=== PATIENT | female | born 1935 | race Caucasian/White ===

== ENCOUNTER → 2017-01-10 | Outpatient (CLI) | payer OTHER ==
[~2017-01-10] MED LIST: ACET-1138 PO; ASPEC325 PO; ASPI-435 PO; ASPI81TA28 PO; CHOL100010 PO; FLNIN/; HYDR25TA5 PO; INSU3INJ3 SC; INSUINJ12 SC; LISI-725 PO; LISI40TA PO; LPR25 PO; SIMV80TA2 PO; SITA100T3 PO; ULT50X PO; b12 injection
[2017-01-10 12:26] LABS: ALT/SGPT 16 U/L (12-78); AST/SGOT 15 U/L (15-37); BLOOD UREA NITROGEN 22 mg/dl (7-18); CALCIUM 9.3 mg/dl (8.5-10.1); CARBON DIOXIDE 28 mmol/L (21-32); CHLORIDE 103 mmol/L (98-107); CHOLESTEROL 157 mg/dl (0-200); GLUCOSE 142 mg/dl (70-99); POTASSIUM 3.9 mmol/L (3.5-5.1); SODIUM 140 mmol/L (136-145); TRIGLYCERIDES 351 mg/dl (0-150); VERY LOW DENSITY LIPOPROT CALC 70 mg/dl
[2017-01-10 12:28] LABS: ALB/GLOB RATIO 1.2 (0.9-2); ALKALINE PHOSPHATASE 80 U/L (45-117); CHOLESTEROL/HDL RATIO 3.4; HDL CHOLESTEROL 46 mg/dl; LDL CHOLESTEROL CALCULATED 41 mg/dl
[2017-01-10 12:59] LABS: ESTIMATED AVERAGE GLUCOSE 183 mg/dl; HA1C FLAG Normal (Normal)
== END | disposition home or self-care (01) ==
LOC: C.LABPVFM 08:56
PROVIDERS: ATTEND Family Medicine
DX: E11.29 Type 2 diabetes mellitus with other diabetic kidney complication (principal); I10 Essential (primary) hypertension; E53.8 Deficiency of other specified B group vitamins; E78.5 Hyperlipidemia, unspecified; E55.9 Vitamin D deficiency, unspecified; G47.9 Sleep disorder, unspecified

== ENCOUNTER → 2017-01-15 | Outpatient (CLI) | payer OTHER ==
[2017-01-15 13:03] LABS: RATIO 36.5 mcg/mg (0-30.0)
== END | disposition home or self-care (01) ==
LOC: C.LABPVFM 15:26
PROVIDERS: ATTEND Family Medicine
DX: E11.29 Type 2 diabetes mellitus with other diabetic kidney complication (principal)

== ENCOUNTER → 2017-02-02 | Outpatient (CLI) | payer OTHER ==
[~2017-02-02] MED LIST changes: +ACET-24 PO; +CHOL2000 PO; +CYAN30003 SQ; +FRRG PO; +TRAZ100T29 PO
== END | disposition home or self-care (01) ==
LOC: C.LABPVFM 14:43
PROVIDERS: ATTEND Neuromusculoskeletal Medicine & OMM
DX: R30.0 Dysuria (principal)

== ENCOUNTER 2017-03-19 06:06 | Inpatient (IN) | payer OTHER ==
[2017-03-05 08:55] VITALS: BMI 36.0
--- NOTE | 2017-03-05 09:29 | PAT Medication Instructions ---
Service Date March 05, 2017. Current Home Medication List Aspirin (Aspirin *), 325 MG PO QAM Cholecalciferol (Vitamin D), 1 TAB PO QPM Hydrochlorothiazide (Hydrochlorothiazide), 25 MG PO QAM Insulin Detmir (Levemir), 45 UNIT SC QPM Lisinopril (Zestril), 20 MG PO QAM Metoprolol Tartrate (Lopressor), 37.5 MG PO BID Simvastatin (Zocor), 80 MG PO QPM Sitagliptin Phosphate (Januvia), 50 MG PO QAM [b12 injection ], Unknown Dose QMONTH Medication Instructions For Your Scheduled Surgery [b12 injection ], Unknown Dose QMONTH (continue as directed) - Hold the following medications the morning of surgery: Sitagliptin Phosphate (Januvia), 50 MG PO QAM Lisinopril (Zestril), 20 MG PO QAM Hydrochlorothiazide (Hydrochlorothiazide), 25 MG PO QAM - Take the following medications the morning of surgery with a sip of water: Metoprolol Tartrate (Lopressor), 37.5 MG PO BID Aspirin (Aspirin *), 81 MG PO QAM (okay to take per surgeon) - Take the following medications as scheduled the night before surgery: Simvastatin (Zocor), 80 MG PO QPM Metoprolol Tartrate (Lopressor), 37.5 MG PO BID Insulin Detmir (Levemir), 45 UNIT SC QPM Cholecalciferol (Vitamin D), 1 TAB PO QPM If you have any questions please call us at [phone] or [phone] or [phone]
[2017-03-05 10:47] LABS: URINE APPEARANCE CLEAR (CLEAR); URINE BILIRUBIN NEG (NEG); URINE COLOR DK YELLOW; URINE EPITHELIAL CELL AUTO >30 /lpf (0-5); URINE NITRITE NEG (NEG); URINE SPECIFIC GRAVITY 1.024 (1.000-1.030); UROBILINOGEN NEG (NEG); ZZUR CULT IF INDIC CLEAN CATCH YES
[2017-03-05 10:48] LABS: BASO % 0.5 %; BASO ABS # 0.03 K/uL (0-0.2); COMPLETE YES; EOS % 3.3 %; HEMATOCRIT 37.8 % (37-47); IG% 0.2 %; LYMPH % 25.8 %; LYMPH ABS # 1.66 K/uL (1.2-3.4); MEAN CELL VOLUME 97.9 fL (80-100); MEAN CORPUSCULAR HEMOGLOBIN 31.9 pg (25-34); MEAN CORPUSCULAR HGB CONC 32.5 g/dl (32-36); NEUT % 63.2 %; PLATELET COUNT 159 K/uL (130-400); RED BLOOD COUNT 3.86 M/uL (4.2-5.4); WHITE BLOOD COUNT 6.43 K/uL (4.8-10.8)
[2017-03-05 10:51] LABS: MANUAL MICROSCOPIC REQUIRED? NO; REVIEW REQ? YES
[2017-03-05 10:53] LABS: PROTHROMBIN TIME (PATIENT) 10.6 SECONDS (9.0-12.0)
[2017-03-05 11:09] LABS: ESTIMATED AVERAGE GLUCOSE 183 mg/dl; HA1C FLAG Normal (Normal)
[2017-03-05 11:47] LABS: BUN/CREATININE RATIO 18.7 (10-20); CREATININE 1.4 mg/dl (0.60-1.20); POTASSIUM 4.6 mmol/L (3.5-5.1)
[2017-03-05 11:48] LABS: CALCIUM 9.7 mg/dl (8.5-10.1)
--- NOTE | 2017-03-16 19:32 | HISTORY & PHYSICAL EXAMINATION ---
DATE OF ADMISSION: 03/19/2017 CHIEF COMPLAINT: Bilateral knee pain, right side greater than left. HISTORY OF PRESENT ILLNESS: The patient is an 81-year-old female who presents for surgical treatment of her knees. She has got a long history of bilateral knee pain and discomfort, right side greater than left. She has initially been treated with some steroid shots which has become less successful over time. She had viscosupplementation which did not help at all. Both knees hurt. The right side is a bit worse than the left. She does want to proceed with knee replacement surgery. She wants to try and maintain independent lifestyle and having more difficulty doing this. Her knees hurt when she walks any prolonged distance. PAST MEDICAL HISTORY: 1. Diabetes x8 years. 2. Hypertension. 3. Elevated cholesterol. 4. Obesity with a BMI of 36.6. PAST SURGICAL HISTORY: 1. Bladder surgery. 2. Back surgery. 3. Knee surgery. ALLERGIES: Septra CURRENT MEDICATIONS: 1. Lisinopril 40 mg a day. 2. Zocor 80 mg a day. 3. Aspirin 81 mg a day. 4. Hydrochlorothiazide 25 mg a day. 5. Januvia 50 mg a day. 6. Metoprolol 25 mg twice a day. 7. Levemir 40 units once a day. SOCIAL HISTORY: An 81-year-old female patient from [place]. She gets her medical care at [facility]. She is . She does not smoke. FAMILY HISTORY: Noncontributory. REVIEW OF SYSTEMS: Significant for diabetes for 8 years. Hemoglobin A1c is 8.0 and she has tried to get together with her medical doctor improve this. Denies any current chest pain or shortness of breath. No history of DVT or PE. PHYSICAL EXAMINATION: GENERAL: Reveals a pleasant elderly female. She looks to be in reasonably good health. HEENT: Benign. NECK: Supple. No lymphadenopathy. LUNGS: Clear to auscultation. HEART: Has a regular rate and rhythm. ABDOMEN: Soft, nontender, nondistended. EXTREMITIES: Grossly neurovascularly intact except as follows: Examination of both knees reveals patient ambulates with little bit of a waddling gait. She has varus alignment to both knees. Range of motion of the right knee is from 5-120. She got tender medial joint line and small knee effusion. Examination of the left knee reveals minimal effusion. She is tender over the medial joint line. Range of motion is 5-120. No instability. X-RAYS: X-rays of both knees reveal advanced bilateral knee DJD. She has got complete loss of her medial joint space on both sides. She has got subchondral sclerosis. ASSESSMENT: An 81-year-old female with advanced bilateral knee pain and degenerative joint disease. She has failed conservative treatment. The right knee hurts more than the left and she would like to proceed with knee replacement surgery. PLAN: We will take her to the operating room and do a right total knee replacement. The risks and benefits of right total knee replacement were explained to patient including but not limited to DVT, PE, , infection, neurological injury, vascular injury, bleeding problem, pain, limited range of motion, stiffness, failure to relieve symptoms, incomplete relief of symptoms, need for further surgery in the future, fracture, leg length inequality, nerve palsy, etc. The patient understands and desires to proceed. Informed consent was obtained. We did talk to her about holding lisinopril the morning of surgery and taking her metoprolol. She has been trying to get her blood glucoses under better control. As far as discharge plans, she is planning to be discharged to home using [facility] home health program.
[2017-03-19] VITALS (9 sets, daily range): BP systolic 91–150; BP diastolic 54–78; PULSE 55–125; TEMP 36.4–36.8; O2SAT 93–99; Ht 165.1 cm; Wt 99.9 kg
[~2017-03-19] VITALS: Ht 165.1 cm; Wt 99.9 kg
[~2017-03-19 06:06] MED LIST changes: -ACET-1138 PO; -ACET-24 PO; +ACETAMINOPHEN 500 MG TAB PO SCH; -ASPEC325 PO; -ASPI81TA28 PO; +BUPIVACAINE LIPOSOME 266 MG, BUPIVACAINE/EPINEPHRINE INJ 50 ML, SODIUM CHLORIDE 0.9% PF... INFIL SCH; +CEFAZOLIN 2000 MG/60 ML D5W 60 ML IV SCH; -CHOL2000 PO; -CYAN30003 SQ; +FAMOTIDINE 20 MG TAB PO SCH; -FLNIN/; -FRRG PO; +GABAPENTIN 300 MG CAP PO SCH; -INSU3INJ3 SC; +LACTATED RINGER'S 1000ML 1,000 ML IV SCH; +LACTATED RINGER'S 1000ML IV SCH; -LISI40TA PO; +METOCLOPRAMIDE HCL 10 MG TAB PO SCH; +SCOPOLAMINE 1.5 MG TDSY TD SCH; -TRAZ100T29 PO; -ULT50X PO
[2017-03-19] MEDS ORDERED: TRANEXAMIC ACID INJ 1,000 MG in SODIUM CHLORIDE 0.9% 100ML 100 ML IV SCH ×2 (06:30→16:00)
[2017-03-19] MEDS ORDERED: BUPIVACAINE 0.5 % 5 MG/1 ML PF 10ML VIAL ONE (06:35)
[2017-03-19] MEDS ORDERED: BUPIVACAINE 0.25% 30 ML VIAL ONE (06:35)
--- NOTE | 2017-03-19 06:52 | History & Physical Bridge Note ---
H&P Re-Evaluation Bridge Note: I have examined the patient, reviewed the History & Physical and in the interval since the performance of the History & Physical I have noted the following changes of clinical significance: No changes noted
[2017-03-19] MEDS ORDERED: DEXAMETHASONE SOD INJ 4 MG/ML VIAL ONE (07:38)
[2017-03-19] MEDS ORDERED: LIDOCAINE HCL 2% 2 ML VIAL (20MG/ML) ONE (07:38)
[2017-03-19] MEDS ORDERED: ONDANSETRON INJ 2 MG/ML 2 ML VIAL ONE (07:38)
[2017-03-19] MEDS ORDERED: FENTANYL CITRATE INJ 50 MCG/1 ML 2 ML VIAL ONE (07:38)
[2017-03-19] MEDS ORDERED: PROPOFOL IV EMULSION 10 MG/ML 20 ML VIAL IV ONE (07:38)
[2017-03-19] MEDS ORDERED: MIDAZOLAM HCL 1 MG/ML 2ML VIAL ONE (07:38)
[2017-03-19] MEDS ORDERED: HYDROmorphone INJ 1 MG/ML SYR IV PRN ×2 (08:15→10:45)
[2017-03-19] MEDS ORDERED: ONDANSETRON INJ 2 MG/ML 2 ML VIAL IV PRN ×2 (08:15→10:45)
[2017-03-19] MEDS ORDERED: EpHEDrine SULFATE INJ 50 MG/ML AMP IV PRN (08:15)
[2017-03-19] MEDS ORDERED: MEPERIDINE HCL 25 MG/ML CARP IV PRN (08:15)
[2017-03-19] MEDS ORDERED: FENTANYL CITRATE INJ 50 MCG/1 ML 2 ML VIAL IV PRN (08:15)
[2017-03-19] MEDS ORDERED: LABETALOL HCL IV 5 MG/ML 20ML IV PRN (08:15)
[2017-03-19] MEDS ORDERED: ATROPINE SULFATE 0.1 MG/ML 5ML SYR IV PRN (08:15)
[2017-03-19] MEDS ORDERED: BUPIVACAINE/EPINEPHRINE 0.25% 1:200,000 30 ML VIAL ONE (08:41)
[2017-03-19] MEDS ORDERED: BUPIVACAINE LIPOSOME 1/3% 266 MG/20 ML VIAL INFIL ONE (08:41)
[2017-03-19] MEDS ORDERED: SODIUM CHLORIDE 0.9% PF 50 ML VIAL ONE (08:41)
[2017-03-19] MEDS ORDERED: BACITRACIN 50000 UNIT VIAL ONE (08:41)
--- NOTE | 2017-03-19 10:37 | [facility] Post Operative Brief Note ---
Immediate Operative Summary Operative Date March 19, 2017. Pre-Operative Diagnosis Right Knee Degenerative Joint Disease Post-Operative Diagnosis Same as preop Procedure(s) Performed Right Total Knee Arthroplasty Surgeon Dr. Aleman Appointment Coordinator Surgeon(s) James Forde PA-C Estimated Blood Loss 50 ML Findings Right Knee DJD Fluids (cc crystalloids) 1000 cc Specimens A. Right Knee Bone and Tissue Drains None Anesthesia Spinal Complication(s) None Disposition Recovery Room / PACU
[2017-03-19] MEDS ORDERED: DEXTROSE 50% 50 ML SYR IV PRN (10:45)
[2017-03-19] MEDS ORDERED: ZOLPIDEM TARTRATE 5 MG TAB PO PRN (10:45)
[2017-03-19] MEDS ORDERED: MAGNESIUM HYDROXIDE SUSP 30 ML UDC PO PRN (10:45)
[2017-03-19] MEDS ORDERED: GLUCOSE 10 TABS/TUBE PO PRN (10:45)
[2017-03-19] MEDS ORDERED: GLUCAGON FOR INJ 1 MG VIAL SQ PRN (10:45)
[2017-03-19] MEDS ORDERED: GLUCOSE 40% GEL 15 GM TUBE PO PRN (10:45)
[2017-03-19] MEDS ORDERED: ALUMINUM/MAGNESIUM/SIMETH (MAALOX MAX) 30 ML UDC PO PRN (10:45)
[2017-03-19] MEDS ORDERED: BISACODYL 10 MG SUPP PR PRN (10:45)
[2017-03-19] MEDS ORDERED: METOCLOPRAMIDE HCL INJ 5 MG/ML 2 ML VIAL IV PRN (10:45)
[2017-03-19] MEDS ORDERED: NO NSAIDS SCH (10:45)
--- NOTE | 2017-03-19 11:10 | DIAGNOSTIC IMAGING REPORT ---
RIGHT KNEE 1 OR 2 VIEWS ROUTINE CLINICAL HISTORY: Degenerative arthritis COMPARISON: Outside radiograph dated 01/31/2017 DISCUSSION: There are postsurgical changes of a total right knee arthroplasty and patellar resurfacing. The femoral and tibial components appear well seated. Overlying skin henna are evident. There is air in the soft tissues consistent with recent surgery. IMPRESSION: Postsurgical changes of a total right knee arthroplasty. Electronically signed by: Latrell Mcclellan M.D. 03/19/2017 11:09 AM Dictated Date/Time: 03/19/2017 11:08 AM
--- NOTE | 2017-03-19 11:26 | OPERATIVE REPORT ---
DATE OF OPERATION: 03/19/2017 SURGEON: Dr. Domenico Aleman. CIRCULATION CREW LEADER: RICO Song PREOPERATIVE DIAGNOSIS: Right knee degenerative joint disease. POSTOPERATIVE DIAGNOSIS: Same. PROCEDURE PERFORMED: Right cemented posterior stabilized total knee arthroplasty. COMPLICATIONS: None. ESTIMATED BLOOD LOSS: 50 mL. FLUID REPLACEMENT: 1000 mL crystalloid fluid replacement. TOURNIQUET TIME: 53 minutes at 300 mmHg. ANESTHESIA: Spinal with adductor canal block. DRAINS: None. SPECIMENS: Right knee sent for pathology. OPERATIVE INDICATIONS: The patient is an 81-year-old female who has had a long history of bilateral knee pain and discomfort. She had been treated conservatively with steroid shots as well as medicines and has become less successful over time. Right knee is bothered more than the left, despite the left side being worse radiographically. She elected to proceed with right total knee arthroplasty. OPERATIVE FINDINGS: Operative findings revealed advanced right knee DJD. She had grade 4 [id number] disease of the medial femoral condyle and medial tibial plateau. Really not much eburnation, but full thickness cartilage loss. She had grade 4 changes in the patellofemoral joint. The lateral compartment was pretty well preserved. She had a moderate sized joint effusion. OPERATIVE IMPLANTS: Operative implants consisted of: 1. Biomet Vanguard size 65 right posterior stabilized femoral component. 2. Biomet size 67 tibial tray. 3. A 10-mm posterior stabilized polyethylene insert. 4. A 31 x 8 all poly patella. OPERATIVE PROCEDURE: The patient was taken to the operating room, identified and placed on the operating table in the supine position. All contact areas were appropriately padded. IV antibiotics were provided by anesthesia team. A spinal anesthetic and adductor canal block had been provided in the holding area. Walters catheter was placed in sterile fashion. Right thigh tourniquet was then placed. The right lower extremity was then prepped and draped in the usual sterile fashion. The right leg was elevated and exsanguinated with Esmarch and tourniquet was placed at 300 mmHg. An anterior approach to the right knee was then performed through a longitudinal incision centered over the patella. Sharp dissection was carried out through the subcutaneous tissues down to the level of the extensor mechanism. A medial parapatellar arthrotomy incision was made. Some subperiosteal dissection was carried out medially. The fat pad was resected from beneath the patellar tendon. The lateral patellofemoral ligament was released. The patella was then everted. I elected to cut the patella first. I cleaned the patella of all soft tissues. Patella thickness measured 20 mm in thickness and it was cut down to 13. It was sized to a 31 patella. Lateral osteophyte was removed. I did not prepare the patella until the end of the case. The knee was then flexed. The patella was subluxated laterally. The osteophytes were taken off the distal femur. The ACL and PCL were then released from the distal femur and the tibia subluxated anteriorly. The external tibial alignment jig was then placed in the anterior face of the tibia and adjusted 14 mm medially. Proximal tibial cut was made to remove about 3 mm of bone from the most deficient aspect of the medial tibial plateau. Tibia was then sized to a size 67. Some osteophytes were taken off medial and posteromedially. Attention was then drawn to the femur. The distal femur was entered with a sharp drill. Intramedullary canal was suctioned. A right 5 degree valgus cutting guide was placed. Distal femoral cutting block was pinned in place. Distal femoral cut was made to take an additional 3 mm of bone off the distal femur. The femur was then sized to a 65. This was downsized this slightly. The AP cutting block was pinned parallel to the epicondylar axis, which was 3 degrees of external rotation. The anterior cut, anterior chamfer, posterior cut, and posterior chamfer cuts were made. Box cutting guide was placed and adjusted slightly lateral and the box cut was made. The knee was flexed. The remnants of the medial and lateral menisci were excised. The osteophytes were taken off the posterior aspect of the femur. Trial femoral component was placed. Tibial tray was pinned in maximum external rotation and the drill and stem punch were used to create defect in proximal tibia for the tibial tray. The knee was then trialed and the 10-mm insert fit most appropriately. Attention was then drawn to the patella. I then used the 31-mm template to drill holes in the patella for the patella component. The patella was placed. Knee was taken through range of motion and the patella tracked nicely with no thumbs test. Attention was then drawn toward placement of permanent components. All trial components were removed. A bone plug was placed in the distal femur to limit blood loss. The wound was irrigated with copious amounts of pulsatile lavage solution. A double batch of Palacos G cement was mixed. A right size 65 posterior stabilized femoral component, size 67 tibial tray, a 10-mm posterior stabilized polyethylene insert, and a 31 x 8 all poly patella were then cemented in place. Knee was brought out into full extension until cement hardened. A final cement check was then performed. Pericapsular tissues were injected with a total of 100 mL of a combination of 20 mL of Exparel, 30 mL of normal saline, and 50 mL of 0.25% Marcaine with epinephrine. The patient did receive 1 gram of tranexamic acid. The tourniquet was then let down for final tourniquet time of 53 minutes. Hemostasis was assured with use of electrocautery. The wound was once again irrigated. The extensor mechanism was then closed with a combination of #1 PDS suture and #1 Vicryl suture in a [id number] fashion. Extensor mechanism was checked and found to be intact. The subcutaneous tissues were then closed with 2-0 Dexon suture in a buried interrupted fashion. Skin was closed skin henna. Leg was then cleaned and dried and a sterile dressing of Xeroform, 4 x 4, sterile cast padding and Sergei bandage were applied. The patient was then transferred to the recovery room in stable condition. The patient tolerated the procedure well with no complications. All needle and sponge counts were correct at the end of the operation. I attest to the content of the Intraoperative Record and any orders documented therein. Any exceptio ns are noted below.
--- NOTE | 2017-03-19 12:13 | Anesthesiology Progress Note ---
Anesthesia Post Op Note Date & Time March 19, 2017 at 12:14 Vital Signs Pain Intensity: 0 Vital Signs Past 12 Hours Date Time Temp Pulse Resp B/P Pulse Ox O2 Delivery O2 Flow Rate FiO2 03/19/17 11:30 36.4 56 16 103/46 99 Nasal Cannula 2 03/19/17 11:20 57 16 90/37 100 Nasal Cannula 2 03/19/17 11:10 55 16 94/45 98 Nasal Cannula 2 03/19/17 11:00 60 16 97/44 98 Nasal Cannula 2 03/19/17 10:50 61 16 98/39 100 Mask 10 03/19/17 10:40 36.4 64 16 90/45 98 Mask 10 03/19/17 06:49 36.5 125 20 150/78 93 Room Air Notes Mental Status: alert / awake / arousable, participated in evaluation Pt Amnestic to Procedure: Yes Nausea / Vomiting: adequately controlled Pain: adequately controlled Airway Patency, RR, SpO2: stable & adequate BP & HR: stable & adequate Hydration State: stable & adequate Neuraxial Anesthesia: was administered, sensory block is resolving Anesthetic Complications: no major complications apparent
[2017-03-19] MEDS: SODIUM CHLORIDE 0.9% 1000ML 1,000 ML IV SCH ×2 (13:37→19:58)
[2017-03-19] MEDS: FERROUS GLUCONATE 324 MG TAB PO SCH ×2 (13:37→17:56)
[2017-03-19] MEDS: ACETAMINOPHEN 500 MG TAB PO SCH ×2 (13:38→21:18)
--- NOTE | 2017-03-19 16:03 | PROGRESS NOTE ---
DATE: 03/19/2017 SUBJECTIVE: An 81-year-old female postop from a right knee replacement. I had to wake her when I went into her room this afternoon. She denies any pain. No chest pain or shortness of breath. Not feeling dizzy or lightheaded. OBJECTIVE: VITAL SIGNS: Temperature 36.6. Vital signs stable. GENERAL: Physical examination reveals a healthy pleasant elderly female. She was lying in bed and sleeping when I went to visit her this afternoon. She woke easily. She is awake, alert and oriented. LUNGS: Clear to auscultation. HEART: Has a regular rate and rhythm. ABDOMEN: Soft, nontender, and nondistended. EXTREMITIES: Grossly neurovascularly intact except as follows: Examination of the right leg reveals the leg to be well aligned. Dressing is clean, dry and intact. She can dorsiflex and plantarflex her foot appropriately. She is neurologically intact. X-RAYS: X-rays of the right knee from the recovery room were reviewed. It shows a right cemented posterior stabilized total knee arthroplasty. Components looked to be in good position. No signs of problems. ASSESSMENT: An 81-year-old female postop from a right knee replacement, doing well. Pain is controlled. She is neurologically intact. PLAN: 1. DVT prophylaxis including thigh-high TEDs, SCDs, and aspirin twice a day. 2. PT/OT. Weightbearing as tolerated. Right total knee protocol. 3. Pain control, doing well with current pain regimen. We are going to try and really limit her narcotics to avoid confusion issues and side effects. 4. IV antibiotics x24 hours. 5. Disposition: Plan to discharge to home with some home health once adequately recovered.
[2017-03-19] MEDS: CHECK SCOPOLAMINE PATCH PLACEMENT SCH ×2 (16:24→23:14)
[2017-03-19] MEDS: INSULIN HUMAN REGULAR SC SCH ×2 (18:01→21:29)
[2017-03-19] MEDS: CEFAZOLIN IV 2,000 MG in DEXTROSE 5% 50ML 50 ML IV SCH (18:02)
[2017-03-19] MEDS: TRAMADOL HCL 50 MG TAB PO PRN ×2 (19:58→21:16)
[2017-03-19] MEDS: METOPROLOL TARTRATE 25 MG TAB PO SCH (21:00)
[2017-03-19] MEDS: SIMVASTATIN 80 MG TAB PO SCH (21:16)
[2017-03-19] MEDS: DOCUSATE SODIUM 100 MG CAP PO SCH (21:17)
[2017-03-19] MEDS: ASPIRIN 325 MG ECTAB PO SCH (21:17)
[2017-03-19] MEDS: CHOLECALCIFEROL 400 INTER.UNIT TAB PO SCH (21:17)
[2017-03-20] MEDS: CEFAZOLIN IV 2,000 MG in DEXTROSE 5% 50ML 50 ML IV SCH (01:57)
[2017-03-20] MEDS: TRAMADOL HCL 50 MG TAB PO PRN ×4 (01:58→15:51)
[2017-03-20 03:55] VITALS: BP 154/64; PULSE 73; TEMP 36.9; O2SAT 91
[2017-03-20] MEDS: ACETAMINOPHEN 500 MG TAB PO SCH ×3 (05:02→21:57)
[2017-03-20] MEDS: SODIUM CHLORIDE 0.9% 1000ML 1,000 ML IV SCH (05:03)
[2017-03-20 06:21] LABS: HEMATOCRIT 33.6 % (37-47); MEAN CORPUSCULAR HEMOGLOBIN 31.4 pg (25-34); MEAN CORPUSCULAR HGB CONC 32.7 g/dl (32-36); MEAN PLATELET VOLUME 10.4 fL (7.4-10.4); PLATELET COUNT 145 K/uL (130-400); WHITE BLOOD COUNT 8.11 K/uL (4.8-10.8)
[2017-03-20 06:55] LABS: BUN/CREATININE RATIO 18.1 (10-20); CALCIUM 8.2 mg/dl (8.5-10.1); CREATININE 1.4 mg/dl (0.60-1.20); POTASSIUM 4.6 mmol/L (3.5-5.1)
[2017-03-20 07:31] VITALS: BP 128/70; PULSE 65; TEMP 36.9; O2SAT 90
[2017-03-20] MEDS: CHECK SCOPOLAMINE PATCH PLACEMENT SCH ×3 (07:36→23:12)
[2017-03-20 07:47] VITALS: O2SAT 90
[2017-03-20] MEDS ORDERED: ACET-1138 PO (08:38)
[2017-03-20] MEDS ORDERED: ULT50X PO (08:38)
[2017-03-20] MEDS ORDERED: ASPEC325 PO (08:38)
--- NOTE | 2017-03-20 08:40 | Discharge Instructions ---
Discharge Instructions Date of Service March 20, 2017. Admission Reason for Admission: Right Knee Degenerative Joint Disease Discharge Discharge Diagnosis / Problem: Right Knee Replacement Discharge Goals Goal(s): Decrease discomfort, Improve function, Increase independence, Improve disease control, Therapeutic intervention Activity Recommendations Activity Limitations: per Instructions/Follow-up section Weightbearing Status: Right weightbearing . Instructions / Follow-Up Instructions / Follow-Up ACTIVITY RECOMMENDATIONS: Physical Therapy: * You will go to physical therapy three times each week for four to six weeks after your surgery in order to regain your knee range of motion and to retrain your knee to work properly. * It is just as important to make sure you are getting your knee perfectly straight as it is to regain your knee bend. * Taking a pain pill an hour before therapy can help you have a more productive and comfortable therapy session. Home Exercise: * You were shown a series of exercises (heel props, heel slides, etc.) in the hospital. Do these exercises three to four times each day including the exercises you were shown in physical therapy. Walking: * Get up and walk several times each day. For the first four weeks, try not to stand or walk for more than one hour at a time. If you do stand or walk for more than one hour, you will not hurt anything, but your knee and leg will likely swell. * As you feel comfortable, you may change from the walker or crutches to a cane and then to independent walking. MEDICATIONS: New Medicine: * You will likely be taking one or more of these medications: 1. Tramadol - A quick and shorter-acting pain medication. Take one to two tablets every six hours to lessen your pain. 2. Aspirin - Thins your blood to lessen the chance of forming a blood clot. * The most common side effects of pain medicine and iron are nausea and constipation. If nausea or constipation is too much of a problem or if you have any questions about your new medicines or doses, call [facility] at . We will try to help you manage these issues. VERY IMPORTANT TO READ AND REVIEW" Pain: * The immediate post-operative period after knee replacement surgery is often quite painful. * You are given a prescription for pain medicine. You should take it, as directed, when you need it, especially before physical therapy and before going to bed. Pain that interferes with sleep is very common and can last several months. * You will likely need pain medicine for the first four to six weeks. It will not stop all of the pain. The pain will lessen and as you feel better, you may change to milder pain medicine such as Tylenol. * The most common side effects of pain medicine are nausea and constipation, so don't take more than you need. SPECIAL CARE INSTRUCTIONS: TEDs/Elastic Stockings: * The white elastic stockings help limit swelling and prevent blood clots from forming in your legs. The more you wear them, the more they work. * Wear them for six weeks after knee replacement surgery and four weeks after partial knee replacement. Prevention of Infection: * Take antibiotics one hour before any dental cleaning, dental work, urological procedure, gastrointestinal procedure or any invasive surgery in order to prevent your new joint from getting infected. * You may get the antibiotics from the doctor performing the procedure or you may call our office at before and we will call in a prescription to the pharmacy of your choice. Things to Watch For: * Drainage from the incision site that occurs more than one week after your surgery. * Severely increased knee/leg pain or swelling. * Increased redness at the incision site. * Fever above 102 degrees Fahrenheit. * Unusual chest pain or shortness of breath. * Unusual pain or burning with urination. Call [facility] at with any of the above problems or if you have any questions about your medicines or recovery. FOLLOW UP VISIT: Make an appointment to see your doctor for approximately two weeks after surgery for a progress check and staple removal by calling the office at . Current Hospital Diet Patient's current hospital diet: Diabetes Type 2 Diet Discharge Diet Recommended Diet: Diabetes Type 2 Diet Procedures Procedures Performed: Right Total Knee Arthroplasty Pending Studies Studies pending at discharge: no Laboratory Results Hemoglobin A1c Test 03/05/17 09:37 Range/Units Estimated Average Glucose 183 mg/dl Hemoglobin A1c 8.0 H 4.5-5.6 % Lipid Panel Test 01/10/17 09:00 Range/Units Triglycerides Level 351 H 0-150 mg/dl Cholesterol Level 157 0-200 mg/dl HDL Cholesterol 46 mg/dl Cholesterol/HDL Ratio 3.4 LDL Cholesterol, Calculated 41 mg/dl Medical Emergencies . Who to Call and When: Medical Emergencies: If at any time you feel your situation is an emergency, please call 911 immediately. . Non-Emergent Contact Non-Emergency issues call your: Surgeon . "Provider Documentation" section prepared by Domenico Aleman. . VTE Core Measure Inpt VTE Proph given/why not?: Other Anticoagulation, T.E.DAlex Zee, SCD's
[2017-03-20] MEDS: HYDROCHLOROTHIAZIDE 25 MG TAB PO SCH (08:46)
[2017-03-20] MEDS: ASPIRIN 325 MG ECTAB PO SCH ×2 (08:46→21:56)
[2017-03-20] MEDS: METOPROLOL TARTRATE 25 MG TAB PO SCH ×2 (08:47→21:56)
[2017-03-20] MEDS: LISINOPRIL 20 MG TAB PO SCH (08:47)
[2017-03-20] MEDS: MULTIVITAMIN TAB PO SCH (08:47)
[2017-03-20] MEDS: PANTOprazole SOD 40 MG TAB PO SCH (08:47)
[2017-03-20] MEDS: FERROUS GLUCONATE 324 MG TAB PO SCH ×3 (08:48→17:50)
[2017-03-20] MEDS: DOCUSATE SODIUM 100 MG CAP PO SCH ×2 (08:48→21:58)
[2017-03-20] MEDS: SITAGLIPTIN 25 MG TAB PO SCH (08:48)
[2017-03-20] MEDS: INSULIN HUMAN REGULAR SC SCH ×4 (08:49→22:01)
--- NOTE | 2017-03-20 08:57 | PROGRESS NOTE ---
DATE: 03/20/2017 SUBJECTIVE: An 81-year-old white female postop day #1 from right knee replacement. She is doing pretty well. She is up and exercised this morning and having a bit more knee pain now. No chest pain or shortness of breath. Not feeling dizzy or lightheaded. OBJECTIVE: VITAL SIGNS: Temperature 36.9. Vital signs stable. PHYSICAL EXAMINATION: GENERAL: Reveals a pleasant elderly female. She is sitting up in bed. She is awake, alert and oriented. EXTREMITIES: Examination of the right leg reveals the leg to be well aligned. The patient can dorsiflex and plantarflex her foot appropriately. She is neurologically intact. Dressing is clean, dry and intact. LABORATORY DATA: Hemoglobin is 11.0. Hematocrit 33.6. Electrolytes are stable. Mild chronic renal insufficiency with a creatinine of 1.40. ASSESSMENT: An 81-year-old white female postop day 1 from a right knee replacement, doing pretty well. Some pain which is to be expected. Not out of the ordinary. She is neurologically intact. Renal function is stable. PLAN: 1. DVT prophylaxis include thigh-high TEDs, SCDs, and aspirin twice a day. 2. PT/OT. Weight bear as tolerated. Right total knee protocol. 3. Pain control, doing reasonably well with current pain regimen. We are going to have to be careful to avoid too heavy doses of pain medication to avoid confusion. 4. Disposition: She is planning to be discharged home with some home health once adequately recovered.
[2017-03-20 11:58] VITALS: BP 132/72; PULSE 64; TEMP 36.6; O2SAT 94
[2017-03-20 15:32] VITALS: BP 127/61; PULSE 66; TEMP 37.1; O2SAT 95
[2017-03-20] MEDS: SIMVASTATIN 80 MG TAB PO SCH (21:55)
[2017-03-20] MEDS: CHOLECALCIFEROL 400 INTER.UNIT TAB PO SCH (21:56)
[2017-03-20 23:11] VITALS: BP 127/71; PULSE 61; TEMP 36.6; O2SAT 90
[2017-03-21] MEDS: TRAMADOL HCL 50 MG TAB PO PRN ×2 (05:22→10:21)
[2017-03-21] MEDS: ACETAMINOPHEN 500 MG TAB PO SCH (05:22)
[2017-03-21 06:15] VITALS: BP 151/76; PULSE 64; TEMP 36.7; O2SAT 92
[2017-03-21] MEDS: FERROUS GLUCONATE 324 MG TAB PO SCH ×2 (07:22→12:29)
[2017-03-21] MEDS: LISINOPRIL 20 MG TAB PO SCH (07:23)
[2017-03-21] MEDS: DOCUSATE SODIUM 100 MG CAP PO SCH (07:23)
[2017-03-21] MEDS: ASPIRIN 325 MG ECTAB PO SCH (07:23)
[2017-03-21] MEDS: PANTOprazole SOD 40 MG TAB PO SCH (07:23)
[2017-03-21] MEDS: HYDROCHLOROTHIAZIDE 25 MG TAB PO SCH (07:23)
[2017-03-21] MEDS: METOPROLOL TARTRATE 25 MG TAB PO SCH (07:23)
[2017-03-21] MEDS: MULTIVITAMIN TAB PO SCH (07:24)
[2017-03-21] MEDS: SITAGLIPTIN 25 MG TAB PO SCH (07:24)
[2017-03-21] MEDS: INSULIN HUMAN REGULAR SC SCH ×2 (07:27→12:00)
--- NOTE | 2017-03-21 07:40 | PROGRESS NOTE ---
DATE: 03/21/2017 SUBJECTIVE: 81-year-old female postop day 2 from right placement. She is doing okay. Quite a bit of knee pain with therapy. No other complaints. No chest pain or shortness of breath. Not feeling dizzy or lightheaded. OBJECTIVE: VITAL SIGNS: Temperature 36.7. Vital signs stable. PHYSICAL EXAMINATION: GENERAL: Pleasant elderly female. She is lying in bed this morning and looks reasonably comfortable. EXTREMITIES: Examination of the right leg reveals the leg to be well aligned. Dressing is clean, dry and intact. Calf is soft and supple. Not much swelling. She is neurologically intact. ASSESSMENT: 81-year-old white female postop day 2 from right knee replacement, doing pretty well. Pain is reasonably well controlled. We have to be careful with pain medicines to avoid confusion and side effects. PLAN: 1. DVT prophylaxis including thigh-high TEDS, SCDs, and aspirin twice a day. 2. PT/OT. Weightbearing as tolerated. Right total knee protocol. 3. Pain control. Doing reasonably well with current pain regimen. I am a little hesitant to give her too much more for fear of confusion and side effects. 4. Disposition: Plan to discharge to home with some home health if she does okay in therapy today.
[2017-03-21 07:44] VITALS: BP 126/72; PULSE 65; TEMP 36.8; O2SAT 92
[2017-03-21 07:50] VITALS: O2SAT 92
[2017-03-21 08:19] VITALS: BP 136/69; PULSE 63; O2SAT 91
[2017-03-21 12:08] VITALS: BP 136/69; PULSE 63; TEMP 36.8; O2SAT 91
--- NOTE | 2017-03-29 14:11 | DISCHARGE SUMMARY ---
ADMITTING PHYSICIAN AND SURGEON: Dr. Aleman. ADMITTING DIAGNOSIS: Right knee degenerative joint disease. SURGERY PERFORMED: Right total knee arthroplasty. SECONDARY DIAGNOSES: Include diabetes, hypertension, elevated cholesterol, obesity. CONSULTS: None obtained. HISTORY AND PHYSICAL EXAMINATION: Well documented in the patient's chart. HOSPITAL COURSE: The patient was admitted on 03/19/2017 underwent total knee arthroplasty, tolerated the procedure well. There were no complications. She was transferred to the PACU postoperatively and later to the orthopedic floor for further care. She was given Ancef for antibiotic prophylaxis, TERRY stockings, SCDs and aspirin for DVT prophylaxis. Hemoglobin, hematocrit and vital signs were monitored during her hospital stay and remained stable. She developed some postoperative anemia, did not require any blood transfusions. There were no complications. By postoperative day 2, she was tolerating a diabetic diet, pain was controlled with oral pain medicine. She was participating in physical therapy and had no signs or symptoms of deep vein thrombosis. On postop day 2, she was discharged to home with home health services. She was given printed discharge instructions including new prescriptions for Extra-Strength Tylenol, aspirin 325 mg b.i.d., tramadol. She will continue her home medications with the exception of her home dose of aspirin which was changed. Continue physical therapy. She is weight bearing as tolerated, TERRY stockings. Follow up in 10-12 days or sooner if there are any problems or concerns.
[2017-08-08] MEDS ORDERED: CHOL2000 PO (11:09)
[2017-08-08] MEDS ORDERED: TRAZ100T29 PO (11:09)
[2017-08-08] MEDS ORDERED: CYAN30003 SQ (11:09)
== END 2017-03-21 12:51 | disposition home health service (06) | DRG 470 ==
LOC: ENRESERVTM → ENRESERVDT → C.ACU 06:06 → C.3E 06:40
PROVIDERS: ADMIT Orthopaedic Surgery Sports Medicine; ATTEND Orthopaedic Surgery Sports Medicine
PROC: 0SRC0J9 Replacement of Right Knee Joint with Synthetic Substitute, Cemented, Open Approach (ICD-10-PCS; principal; 2017-03-19 08:55)
DX: M17.0 Bilateral primary osteoarthritis of knee (principal); I47.1 Supraventricular tachycardia; M25.461 Effusion, right knee; M21.161 Varus deformity, not elsewhere classified, right knee; M21.162 Varus deformity, not elsewhere classified, left knee; J44.9 Chronic obstructive pulmonary disease, unspecified; I12.9 Hypertensive chronic kidney disease with stage 1 through stage 4 chronic kidney disease, or unspecified chronic kidney disease; E11.22 Type 2 diabetes mellitus with diabetic chronic kidney disease; N18.3 Chronic kidney disease, stage 3 (moderate); E78.00 Pure hypercholesterolemia, unspecified; E66.9 Obesity, unspecified; Z68.36 Body mass index [BMI] 36.0-36.9, adult; Z87.891 Personal history of nicotine dependence; Z79.4 Long term (current) use of insulin; Z79.82 Long term (current) use of aspirin; Z79.84 Long term (current) use of oral hypoglycemic drugs; Z79.899 Other long term (current) drug therapy

== ENCOUNTER 2017-04-11 11:51 | Emergency (ER) | payer OTHER ==
[~2017-04-11] VITALS: Ht 170.2 cm; Wt 92.9 kg
[~2017-04-11 11:51] MED LIST changes: +ACET-1138 PO; -ACETAMINOPHEN 500 MG TAB PO SCH; +ASPEC325 PO; -ASPI-435 PO; -BUPIVACAINE LIPOSOME 266 MG, BUPIVACAINE/EPINEPHRINE INJ 50 ML, SODIUM CHLORIDE 0.9% PF... INFIL SCH; -CEFAZOLIN 2000 MG/60 ML D5W 60 ML IV SCH; -FAMOTIDINE 20 MG TAB PO SCH; -GABAPENTIN 300 MG CAP PO SCH; -LACTATED RINGER'S 1000ML 1,000 ML IV SCH; -LACTATED RINGER'S 1000ML IV SCH; -METOCLOPRAMIDE HCL 10 MG TAB PO SCH; -SCOPOLAMINE 1.5 MG TDSY TD SCH; +ULT50X PO
[2017-04-11 12:01] VITALS: TEMP 36.8; Ht 170.2 cm; Wt 92.9 kg
[2017-04-11 12:23] VITALS: O2SAT 97
[2017-04-11] MEDS ORDERED: SODIUM CHLORIDE 0.9% 1000ML 1,000 ML IV STA (12:33)
[2017-04-11 12:44] LABS: BASO % 0.8 %; BASO ABS # 0.05 K/uL (0-0.2); COMPLETE YES; EOS % 3.4 %; HEMATOCRIT 36.9 % (37-47); IG% 0.2 %; LYMPH % 19.8 %; LYMPH ABS # 1.17 K/uL (1.2-3.4); MEAN CELL VOLUME 94.4 fL (80-100); MEAN CORPUSCULAR HEMOGLOBIN 30.2 pg (25-34); MEAN PLATELET VOLUME 9.3 fL (7.4-10.4); MONO % 9.1 %; NEUT % 66.7 %; PLATELET COUNT 259 K/uL (130-400); RED BLOOD COUNT 3.91 M/uL (4.2-5.4); WHITE BLOOD COUNT 5.91 K/uL (4.8-10.8)
[2017-04-11] MEDS ORDERED: LISI40TA PO (12:50)
[2017-04-11] MEDS ORDERED: ASPI81TA28 PO (12:50)
[2017-04-11] MEDS ORDERED: INSU3INJ3 SC (12:50)
[2017-04-11 13:02] LABS: ALT/SGPT 15 U/L (12-78); BLOOD UREA NITROGEN 26 mg/dl (7-18); BUN/CREATININE RATIO 18.8 (10-20); CALCIUM 9.9 mg/dl (8.5-10.1); CARBON DIOXIDE 27 mmol/L (21-32); CHLORIDE 104 mmol/L (98-107); GLUCOSE 100 mg/dl (70-99); MAGNESIUM 1.7 mg/dl (1.8-2.4); POTASSIUM 4.2 mmol/L (3.5-5.1); SODIUM 140 mmol/L (136-145)
--- NOTE | 2017-04-11 13:05 | DIAGNOSTIC IMAGING REPORT ---
CHEST ONE VIEW PORTABLE CLINICAL HISTORY: Weakness, nausea, dizziness COMPARISON STUDY: 11/14/2015 FINDINGS: The cardiac and mediastinal contours are normal. There is no evidence of focal pulmonary consolidation. There is no evidence of failure. 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 IMPRESSION: No active disease in the chest. Electronically signed by: Latrell Mcclellan M.D. 04/11/2017 1:03 PM Dictated Date/Time: 04/11/2017 1:03 PM
[2017-04-11 13:07] LABS: PARTIAL THROMBOPLASTIN RATIO 1.1; PROTHROMBIN TIME (PATIENT) 11.2 SECONDS (9.0-12.0)
[2017-04-11 13:13] LABS: ALKALINE PHOSPHATASE 97 U/L (45-117); AST/SGOT 19 U/L (15-37)
[2017-04-11 15:44] LABS: URINE APPEARANCE CLEAR (CLEAR); URINE BILIRUBIN NEG (NEG); URINE COLOR YELLOW; URINE EPITHELIAL CELL AUTO >30 /lpf (0-5); URINE NITRITE NEG (NEG); URINE PH 6.5 (4.5-7.5); URINE SPECIFIC GRAVITY 1.017 (1.000-1.030); UROBILINOGEN NEG (NEG)
[2017-04-11 15:48] LABS: MANUAL MICROSCOPIC REQUIRED? NO; REVIEW REQ? NO
[2017-04-11] MEDS ORDERED: ATIVAN 1MG HOMEPACK PO ONE (17:15)
[2017-04-11 18:02] VITALS: BP 128/69; PULSE 85; O2SAT 100
--- NOTE | 2017-04-11 22:00 | EMERGENCY ROOM VISIT NOTE ---
History Report prepared by Brigido: Rosalinda Burnett Under the Supervision of: Dr. Yimi Bertrand M.D. First contact with patient: 12:31 Chief Complaint: DIZZY Stated Complaint: DIZZY/NAUSEA Nursing Triage Summary: Patient arrived via ALS. Patient has right knee surgery 03/20. Patient states has not been taking pain medication because get nauseated from it. Patient has been experiencing dizziness that is worse when changing positions. Patient has had multiple near syncopal episodes, however has not fallen at this time. Patient denies head trauma or LOC. History of Present Illness The patient is an 82 year old female who presents to the Emergency Room with complaints of insomnia and an episode of dizziness starting this morning. The patient reports that 23 days ago she had a knee replacement. She states that a couple days after the surgery she became nauseated and was vomiting. She reports that she became better, but it started again a week later. The patient also reports that she felt like she was going to pass out, but never did. She notes that she has been increasingly fatigued for two days because she has significant trouble sleeping. She states that she had this trouble before the surgery, but since the surgery it has worsened. The patient's significant other and daughter are present and state that she has a long history of difficulty sleeping and insomnia but this is gotten much worse. The patient denies any sensation that the room is spinning. She does not note any change in dizziness or vertigo with head movement. The patient denies any abdominal pain, chest pain, back pain, shortness of breath, headache, neck pain, and numbness or tingling. She reports that she came to the ED today because her lightheadedness was the worst it has ever been. The patient notes that she is experiencing a gout flare up in her left foot. She denies any recent use of pain medications. Source of History: patient Onset: this morning Position: other (global) Quality: other (global) Timing: other (episode) Associated Symptoms: + nausea, + vomiting, + fatigue, No headache, No neck pain, No chest pain, No SOB, No abdominal pain, No back pain Note: The patient complains of feeling like she is going to pass out and an episode of gout in her left foot. The patient denies numbness and tingling. Review of Systems See HPI for pertinent positives and negatives. A total of ten systems were reviewed and were otherwise negative. Past Medical & Surgical Medical Problems: (1) Diabetes (2) Hypertension (3) Right Knee DJD Family History No pertinent family history Social History Smoking Status: Former Smoker Drug Use: none Marital Status: Housing Status: lives with family Occupation Status: retired Current/Historical Medications Scheduled Aspirin (Aspirin Ec), 81 MG PO DAILY Hydrochlorothiazide (Hydrochlorothiazide), 25 MG PO QAM Insulin Detemir (Levemir Flextouch), 45 UNITS SC DAILY Lisinopril (Zestril), 40 MG PO DAILY Metoprolol Tartrate (Lopressor), 37.5 MG PO BID Simvastatin (Zocor), 80 MG PO QPM Sitagliptin Phosphate (Januvia), 50 MG PO QAM Allergies Coded Allergies: Sulfa Antibiotics (Verified Allergy, Intermediate, SKIN OUTBREAK,BLACK AND BLUE MONTEMAYOR, 03/19/17) Sulfamethoxazole (Verified Allergy, Intermediate, SKIN OUTBREAK,BLACK AND BLUE MONTEMAYOR, 03/19/17) Replaces SULFAMETHOXAZ Trimethoprim (Verified Allergy, Intermediate, SKIN OUTBREAK,BLACK AND BLUE MONTEMAYOR, 03/19/17) Replaces SULFAMETHOXAZ Codeine (Verified Adverse Reaction, Intermediate, NAUSATED,VOMITING, ) Physical Exam Vital Signs Date Time Temp Pulse Resp B/P (MAP) Pulse Ox O2 Delivery O2 Flow Rate FiO2 04/11/17 18:02 85 20 128/69 100 04/11/17 17:04 71 16 141/52 97 Room Air 04/11/17 16:19 66 04/11/17 15:20 67 16 141/52 100 Room Air 04/11/17 13:42 78 20 139/64 97 Room Air 77 146/60 87 131/69 04/11/17 13:40 77 20 146/60 97 Room Air 04/11/17 12:23 97 Room Air 04/11/17 12:16 70 04/11/17 12:01 36.8 69 18 126/52 97 Room Air Physical Exam GENERAL: Awake, alert, tired appearing, in no distress HENT: Normocephalic, atraumatic. Oropharynx unremarkable. EYES: Normal conjunctiva. Sclera non-icteric. PERRLA. EOMI. No nystagmus. No drift. NECK: Supple. No nuchal rigidity. FROM. No JVD. RESPIRATORY: Clear to auscultation. CARDIAC: Regular rate, normal rhythm. Extremities warm and well perfused. Pulses equal. ABDOMEN: Soft, non-distended. No tenderness to palpation. No rebound or guarding. No masses. RECTAL: Deferred. MUSCULOSKELETAL: Chest examination reveals no tenderness. The back is symmetrical on inspection without obvious abnormality. There is no CVA tenderness to palpation. No joint edema. LOWER EXTREMITIES: Calves are equal size bilaterally and non-tender. No edema. No discoloration. First MTP joint on left side redness and swelling. Right knee incision clean, dry and intact with no drainage. NEURO: Normal sensorium. No sensory or motor deficits noted. SKIN: No rash or jaundice noted. Medical Decision & Procedures ER Provider Diagnostic Interpretation: Radiology results as stated below per my review and radiologist interpretation: CHEST ONE VIEW PORTABLE CLINICAL HISTORY: Weakness, nausea, dizziness COMPARISON STUDY: 11/14/2015 FINDINGS: The cardiac and mediastinal contours are normal. There is no evidence of focal pulmonary consolidation. There is no evidence of failure. 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 IMPRESSION: No active disease in the chest. Electronically signed by: Latrell Mcclellan M.D. 04/11/2017 1:03 PM Dictated Date/Time: 04/11/2017 1:03 PM Laboratory Results 04/11/17 12:33 Red Blood Count 3.91, Mean Corpuscular Volume 94.4, Mean Corpuscular Hemoglobin 30.2, Mean Corpuscular Hemoglobin Concent 32.0, Mean Platelet Volume 9.3, Neutrophils (%) (Auto) 66.7, Lymphocytes (%) (Auto) 19.8, Monocytes (%) (Auto) 9.1, Eosinophils (%) (Auto) 3.4, Basophils (%) (Auto) 0.8, Neutrophils # (Auto) 3.94, Lymphocytes # (Auto) 1.17, Monocytes # (Auto) 0.54, Eosinophils # (Auto) 0.20, Basophils # (Auto) 0.05 04/11/17 12:33 Test 04/11/17 12:33 04/11/17 15:29 White Blood Count 5.91 K/uL (4.8-10.8) Red Blood Count 3.91 M/uL (4.2-5.4) Hemoglobin 11.8 g/dL (12.0-16.0) Hematocrit 36.9 % (37-47) Mean Corpuscular Volume 94.4 fL (80-100) Mean Corpuscular Hemoglobin 30.2 pg (25-34) Mean Corpuscular Hemoglobin Concent 32.0 g/dl (32-36) Platelet Count 259 K/uL (130-400) Mean Platelet Volume 9.3 fL (7.4-10.4) Neutrophils (%) (Auto) 66.7 % Lymphocytes (%) (Auto) 19.8 % Monocytes (%) (Auto) 9.1 % Eosinophils (%) (Auto) 3.4 % Basophils (%) (Auto) 0.8 % Neutrophils # (Auto) 3.94 K/uL (1.4-6.5) Lymphocytes # (Auto) 1.17 K/uL (1.2-3.4) Monocytes # (Auto) 0.54 K/uL (0.11-0.59) Eosinophils # (Auto) 0.20 K/uL (0-0.5) Basophils # (Auto) 0.05 K/uL (0-0.2) RDW Standard Deviation 46.6 fL (36.4-46.3) RDW Coefficient of Variation 13.5 % (11.5-14.5) Immature Granulocyte % (Auto) 0.2 % Immature Granulocyte # (Auto) 0.01 K/uL (0.00-0.02) Prothrombin Time 11.2 SECONDS (9.0-12.0) Prothromb Time International Ratio 1.0 (0.9-1.1) Activated Partial Thromboplast Time 27.3 SECONDS (21.0-31.0) Partial Thromboplastin Ratio 1.1 Anion Gap 9.0 mmol/L (3-11) Est Creatinine Clear Calc Drug Dose 35.6 ml/min Estimated GFR () 40.2 Estimated GFR (Non- 34.7 BUN/Creatinine Ratio 18.8 (10-20) Calcium Level 9.9 mg/dl (8.5-10.1) Magnesium Level 1.7 mg/dl (1.8-2.4) Total Bilirubin 0.4 mg/dl (0.2-1) Direct Bilirubin 0.1 mg/dl (0-0.2) Aspartate Amino Transf (AST/SGOT) 19 U/L (15-37) Alanine Aminotransferase (ALT/SGPT) 15 U/L (12-78) Alkaline Phosphatase 97 U/L (45-117) Total Creatine Kinase 47 U/L (26-192) Creatine Kinase MB < 0.5 ng/ml (0.5-3.6) Creatine Kinase MB Ratio (0-3.0) Troponin I < 0.015 ng/ml (0-0.045) Total Protein 7.3 gm/dl (6.4-8.2) Albumin 3.6 gm/dl (3.4-5.0) Thyroid Stimulating Hormone (TSH) 1.180 uIu/ml (0.300-4.500) Urine Color YELLOW Urine Appearance CLEAR (CLEAR) Urine pH 6.5 (4.5-7.5) Urine Specific Hubertus 1.017 (1.000-1.030) Urine Protein NEG (NEG) Urine Glucose (UA) NEG (NEG) Urine Ketones NEG (NEG) Urine Occult Blood NEG (NEG) Urine Nitrite NEG (NEG) Urine Bilirubin NEG (NEG) Urine Urobilinogen NEG (NEG) Urine Leukocyte Esterase SMALL (NEG) Urine WBC (Auto) 5-10 /hpf (0-5) Urine RBC (Auto) 0-4 /hpf (0-4) Urine Hyaline Casts (Auto) 1-5 /lpf (0-5) Urine Epithelial Cells (Auto) >30 /lpf (0-5) Urine Bacteria (Auto) 1+ (NEG) Laboratory results reviewed by me Medications Administered Medications (Trade) Dose Ordered Sig/Carmen Route Start Time Stop Time Status Last Admin Dose Admin Sodium Chloride 1,000 ml @ 125 mls/hr Q8H STAT IV 04/11/17 12:33 04/11/17 18:24 DC 04/11/17 12:54 125 MLS/HR Lorazepam (Ativan 1MG Home Pack) 1 homepack UD ONCE PO 04/11/17 17:15 04/11/17 17:49 DC 04/11/17 17:54 1 HOMEPACK ECG Indication: other (dizziness) Rate (beats per minute): 64 Rhythm: normal sinus Findings: no acute ischemic change, no ectopy ED Course 1233: Ordered NSS 1000 ml @ 125 mls/hr IV. 1300: The patient was evaluated in room B2. A complete history and physical exam was performed. 1647: I reevaluated the patient and discussed being further evaluated. The patient does not want to stay to be further evaluated and wants to go home. I have case management trying to get her an appointment with her PCP. 1714 I reevaluated the patient. Discussed results and discharge instructions: She verbalized understanding and agreement. The patient is ready for discharge. 1715: Ordered Lorazepam 1 homepack PO. Medical Decision Medication Reconciliation: I attest that I have personally reviewed the patient' s current medication list Blood pressure screening: Patient was found to have normal blood pressure on screening and does not require follow-up. Triage Nursing notes reviewed. The patient's presentation and history were concerning for insomnia, recent surgery, and dizziness. Etiologies such as metabolic, infection, hypo/hyperglycemia, electrolyte abnormalities, cardiac sources, intracerebral event, toxicologic, neurologic, fatigue, insomnia, as well as others were entertained. The patient was evaluated. Medically she was doing very well. Her surgery site looked excellent. She had no focal neurologic findings. Orthostatic testing did not reveal any abnormalities. The patient was not symptomatic with orthostatic testing. She was able to ambulate to the bathroom without difficulty. Her CBC showed a mild anemia. Urinalysis did not reveal any significant findings. Her electrolytes and chemistries were unremarkable. LFTs are negative. Cardiac markers negative and her TSH was normal. ECG was unremarkable. Imaging as above was unremarkable. The patient's family states that she is doing relatively well at home and she is eating and getting around. The patient does not have any focal findings to suggest stroke or intracranial pathology. There is no history to clearly support vertigo. No findings on examination to support vertigo. They do note that she has significant trouble sleeping. The patient is requesting medication for sleep. She notes using Ambien in the past without any relief. I did discuss bringing the patient into the hospital for further management however she does not want to come in the hospital. Since he does not want to come in and I did have case management set up an appointment with her primary physician tomorrow. This was done and the patient will be seen tomorrow morning at 9 AM. I did offer the patient a small amount of Ativan to take home with her to try for her symptoms. The patient was in agreement. I did discuss the risk and benefits at length with the patient and family present.I gave my usual and customary discussion regarding this issue. The patient and family felt comfortable with this. I asked the patient to return to the emergency department if she has any worsening symptoms and she agreed. Family states they will bring her back. The Emergency Room pharmacist did prepare the patient's medications for her. By the evaluation outlined above other emergent etiologies such as those listed in the differential, as well as others, were deemed relatively unlikely. The patient was educated about the findings as listed above. All questions were answered and the patient was pleased with the treatment. Return instructions were outlined and the patient was discharged in stable condition. The patient was referred to her PCP for follow-up for a recheck of the current condition. Impression Primary Impression: Weakness Additional Impression: Insomnia Scribe Attestation The scribe's documentation has been prepared under my direction and personally reviewed by me in its entirety. I confirm that the note above accurately reflects all work, treatment, procedures, and medical decision making performed by me. Departure Information Dispostion Home / Self-Care Referrals Donny Cooper M.D. (PCP) Forms HOME CARE DOCUMENTATION FORM, IMPORTANT VISIT INFORMATION Patient Instructions My [facility] Additional Instructions Ativan: Take one half tablet 30 minutes before bedtime as needed. Do not drive for at least 8 hours if taking. May cause drowsiness. Do not take if you are at work or doing any activity where being under the influence may be dangerous. Follow-up with your primary care doctor tomorrow morning at 9 AM. Continue current medications. Rest and drink plenty of fluids. Return to the ER for headache, weakness, passing out, difficulty breathing, fevers, numbness, tingling, worsening of your condition, or as needed. Problem Qualifiers
== END 2017-04-11 18:04 | disposition home or self-care (01) ==
LOC: EDBD 11:51 → C.EDB 11:52
DX: R53.1 Weakness (principal); G47.00 Insomnia, unspecified; E11.9 Type 2 diabetes mellitus without complications; I10 Essential (primary) hypertension; M17.9 Osteoarthritis of knee, unspecified; Z87.891 Personal history of nicotine dependence; Z79.82 Long term (current) use of aspirin; Z79.899 Other long term (current) drug therapy

== ENCOUNTER → 2017-06-14 | Outpatient (CLI) | payer OTHER ==
[~2017-06-14] MED LIST changes: -ACET-1138 PO; -ASPEC325 PO; +ASPI81TA28 PO; -CHOL100010 PO; +INSU3INJ3 SC; -INSUINJ12 SC; -LISI-725 PO; +LISI40TA PO; -ULT50X PO; -b12 injection
== END | disposition home or self-care (01) ==
LOC: C.LABPVFM 11:05
PROVIDERS: ATTEND Family Medicine
DX: R30.0 Dysuria (principal)

== ENCOUNTER 2017-09-03 06:20 | Inpatient (IN) | payer OTHER ==
[2017-08-06 12:29] LABS: BLOOD UREA NITROGEN 24 mg/dl (7-18); BUN/CREATININE RATIO 18.4 (10-20); C-REACTIVE PROTEIN 0.51 mg/dl (0-0.29); CALCIUM 9.7 mg/dl (8.5-10.1); CARBON DIOXIDE 31 mmol/L (21-32); CHLORIDE 102 mmol/L (98-107); CREATININE 1.28 mg/dl (0.60-1.20); GLUCOSE 130 mg/dl (70-99); POTASSIUM 4.4 mmol/L (3.5-5.1); SODIUM 138 mmol/L (136-145)
[2017-08-06 12:33] LABS: PROTHROMBIN TIME (PATIENT) 10.6 SECONDS (9.0-12.0)
[2017-08-06 18:25] LABS: BASO % 0.5 %; BASO ABS # 0.03 K/uL (0-0.2); COMPLETE YES; EOS % 2.3 %; HEMATOCRIT 38.8 % (37-47); IG% 0.3 %; LYMPH % 21.5 %; LYMPH ABS # 1.41 K/uL (1.2-3.4); MEAN CELL VOLUME 94.9 fL (80-100); MEAN CORPUSCULAR HEMOGLOBIN 31.1 pg (25-34); MEAN CORPUSCULAR HGB CONC 32.7 g/dl (32-36); MEAN PLATELET VOLUME 10.9 fL (7.4-10.4); MONO % 8.7 %; NEUT % 66.7 %; PLATELET COUNT 172 K/uL (130-400); RED BLOOD COUNT 4.09 M/uL (4.2-5.4); WHITE BLOOD COUNT 6.57 K/uL (4.8-10.8)
[2017-08-08 11:10] VITALS: BMI 33.0
--- NOTE | 2017-08-31 20:04 | HISTORY & PHYSICAL EXAMINATION ---
DATE OF ADMISSION: 09/03/2017 CHIEF COMPLAINT: Left knee pain. HISTORY OF PRESENT ILLNESS: The patient is an 82-year-old female who is now about 6 months out from a right knee replacement. She has done well with this. She continues to be bothered by left knee pain. Left knee has been bothering her for years. She has been through extensive conservative treatment including steroid shots and viscosupplementation. She was hoping to have both knees replaced at the same time, but I did not think it was safe. She has recovered from her right knee and she would like to proceed with left knee replacement. PAST MEDICAL HISTORY: 1. Diabetes x8 years. 2. Hypertension. 3. Elevated cholesterol. 4. Obesity with BMI of 33. PAST SURGICAL HISTORY: Previous surgeries include: 1. Bladder surgery. 2. Back surgery. 3. Knee surgery. 4. Right total knee replacement done on 03/19/2013. ALLERGIES: SEPTRA. CURRENT MEDICINES: 1. Lisinopril 40 mg. 2. Zocor 80 mg. 3. Aspirin 81 mg. 4. Hydrochlorothiazide 25 mg. 5. Januvia 50 mg a day. 6. Metoprolol 25 mg twice a day. 7. Levemir 40 units once a day. SOCIAL HISTORY: This is an 82-year-old female. She lives in [place]. She gets her medical care at [facility]. She is . Does not smoke. FAMILY HISTORY: Negative for heart disease or blood clots. REVIEW OF SYSTEMS: Significant for diabetes. Denies any current chest pain, shortness of breath. No history of DVT or PE. No dysuria. No bleeding problems. PHYSICAL EXAMINATION: GENERAL: Reveals a pleasant, healthy elderly female who looks to be in good health. HEENT: Benign. NECK: Supple. No lymphadenopathy. LUNGS: Clear to auscultation. HEART: Has a regular rate and rhythm. ABDOMEN: Soft, nontender, nondistended. EXTREMITIES: Grossly neurovascularly intact except as follows: Examination of the left knee reveals varus alignment to her knee. She is tender over the medial joint line. Range of motion is 10-120. No instability. Small to moderate knee effusion. Examination of the right knee reveals a well-healed incision. Range of motion 0-120. Good straight leg raise. X-RAYS: X-rays of the left knee were reviewed. It shows advanced left knee DJD. She has got complete loss of the medial joint space. She has significant posterior osteophytes. ASSESSMENT: An 82-year-old female 6 months out from right knee replacement with advanced left knee degenerative joint disease. She would like to have her left knee replaced. PLAN: We will take her to the operating room and do a left total knee replacement. The risks and benefits of this procedure were explained to the patient including but not limited to DVT, PE, , infection, neurological injury, vascular injury, bleeding problems, pain, limited range of motion, stiffness, failure to relieve her symptoms, incomplete relief of symptoms, need for further surgery in the future, fracture, leg length inequality, nerve palsy, etc. The patient understands and desires to proceed. Informed consent was obtained. We did talk about holding her lisinopril the morning of surgery and taking her metoprolol. We will use insulin sliding scale coverage in the hospital. She is planning to be discharged to home using the home health similar to last time.
[~2017-09-03] VITALS: Ht 167.6 cm; Wt 93.2 kg
[2017-09-03] VITALS (9 sets, daily range): BP systolic 115–176; BP diastolic 63–90; PULSE 58–74; TEMP 36.4–36.9; O2SAT 94–98; Ht 167.6 cm; Wt 93.2 kg
[~2017-09-03 06:20] MED LIST changes: +ACETAMINOPHEN 500 MG TAB PO SCH; +BUPIVACAINE LIPOSOME 266 MG, BUPIVACAINE/EPINEPHRINE INJ 50 ML, SODIUM CHLORIDE 0.9% PF... INFIL SCH; +CEFAZOLIN 2000MG IV PUSH 10 ML IV SCH; +CHOL2000 PO; +CYAN30003 SQ; +FAMOTIDINE 20 MG TAB PO SCH; +GABAPENTIN 300 MG CAP PO SCH; +LACTATED RINGER'S 1000ML 500 ML IV ONE; +LACTATED RINGER'S 1000ML IV SCH; +METOCLOPRAMIDE HCL 10 MG TAB PO SCH; +SCOPOLAMINE 1.5 MG TDSY TD SCH; -SITA100T3 PO; +TRANEXAMIC ACID INJ 1,000 MG in SYRINGE 0 ML IV SCH; +TRAZ100T29 PO
[2017-09-03] MEDS ORDERED: BUPIVACAINE 0.25% 30 ML VIAL ONE (06:30)
[2017-09-03] MEDS ORDERED: BUPIVACAINE 0.5 % 5 MG/1 ML PF 10ML VIAL ONE (06:30)
[2017-09-03] MEDS ORDERED: MIDAZOLAM HCL 1 MG/ML 2ML VIAL ONE (07:35)
[2017-09-03] MEDS ORDERED: FENTANYL CITRATE INJ 50 MCG/1 ML 2 ML VIAL ONE (07:35)
[2017-09-03] MEDS ORDERED: SODIUM CHLORIDE 0.9% PF 50 ML VIAL ONE (09:18)
[2017-09-03] MEDS ORDERED: BUPIVACAINE LIPOSOME 1/3% 266 MG/20 ML VIAL INFIL ONE (09:18)
[2017-09-03] MEDS ORDERED: BUPIVACAINE/EPINEPHRINE 0.25% 1:200,000 30 ML VIAL ONE (09:18)
[2017-09-03] MEDS ORDERED: BACITRACIN 50000 UNIT VIAL ONE (09:18)
[2017-09-03] MEDS ORDERED: PROPOFOL IV EMULSION 10 MG/ML 20 ML VIAL IV ONE ×2 (09:55→10:53)
[2017-09-03] MEDS ORDERED: HYDROmorphone INJ 1 MG/ML SYR IV PRN (10:00)
[2017-09-03] MEDS ORDERED: ONDANSETRON INJ 2 MG/ML 2 ML VIAL IV PRN ×2 (10:00→11:15)
[2017-09-03] MEDS ORDERED: FENTANYL CITRATE INJ 50 MCG/1 ML 2 ML VIAL IV PRN (10:00)
[2017-09-03] MEDS ORDERED: ATROPINE SULFATE 0.1 MG/ML 5ML SYR IV PRN (10:00)
[2017-09-03] MEDS ORDERED: MEPERIDINE HCL 25 MG/ML CARP IV PRN (10:00)
[2017-09-03] MEDS ORDERED: LABETALOL HCL IV 5 MG/ML 20ML IV PRN (10:00)
[2017-09-03] MEDS ORDERED: EpHEDrine SULFATE INJ 50 MG/ML AMP IV PRN (10:00)
--- NOTE | 2017-09-03 11:11 | [facility] Post Operative Brief Note ---
Immediate Operative Summary Operative Date Sep 03, 2017. Pre-Operative Diagnosis Left knee degenerative joint disease Post-Operative Diagnosis Left knee degenerative joint disease Procedure(s) Performed Left total knee arthroplasty Surgeon Dr. Domenico Aleman Foreign Student Adviser Teacher Surgeon(s) Hever Forde PA-C Estimated Blood Loss 50cc Findings Left Knee DJD Fluids (cc crystalloids) 1500 cc Specimens A. Left knee bone and tissue Drains None Anesthesia spinal Complication(s) None Disposition Recovery Room / PACU
[2017-09-03] MEDS ORDERED: DEXAMETHASONE SOD INJ 4 MG/ML VIAL ONE (11:12)
[2017-09-03] MEDS ORDERED: ONDANSETRON INJ 2 MG/ML 2 ML VIAL ONE (11:12)
[2017-09-03] MEDS ORDERED: HYDROmorphone INJ 0.5 MG/0.5 ML SYR IV PRN (11:15)
[2017-09-03] MEDS ORDERED: ALUMINUM/MAGNESIUM/SIMETH (MAALOX MAX) 30 ML UDC PO PRN (11:15)
[2017-09-03] MEDS ORDERED: ZOLPIDEM TARTRATE 5 MG TAB PO PRN (11:15)
[2017-09-03] MEDS ORDERED: GLUCOSE 40% GEL 15 GM TUBE PO PRN (11:15)
[2017-09-03] MEDS ORDERED: GLUCAGON FOR INJ 1 MG VIAL SQ PRN (11:15)
[2017-09-03] MEDS ORDERED: CYANOCOBALAMIN SQ SCH (11:15)
[2017-09-03] MEDS ORDERED: MAGNESIUM HYDROXIDE SUSP 30 ML UDC PO PRN (11:15)
[2017-09-03] MEDS ORDERED: GLUCOSE 10 TABS/TUBE PO PRN (11:15)
[2017-09-03] MEDS ORDERED: DEXTROSE 50% 50 ML SYR IV PRN (11:15)
[2017-09-03] MEDS ORDERED: METOCLOPRAMIDE HCL INJ 5 MG/ML 2 ML VIAL IV PRN (11:15)
[2017-09-03] MEDS ORDERED: BISACODYL 10 MG SUPP PR PRN (11:15)
[2017-09-03] MEDS ORDERED: CEFAZOLIN IV 2,000 MG in DEXTROSE 5% 50ML 50 ML IV SCH (11:15)
--- NOTE | 2017-09-03 11:50 | DIAGNOSTIC IMAGING REPORT ---
L KNEE 1 OR 2 VIEWS ROUTINE CLINICAL HISTORY: Osteoarthritis postop study COMPARISON: Outside study dated 07/15/2017 DISCUSSION: There are postsurgical changes of a total left knee arthroplasty and patellar resurfacing. The femoral and tibial components appear well seated. Overlying skin henna are visualized. There is air within the soft tissues consistent with recent surgery. IMPRESSION: Postsurgical changes of a total left knee arthroplasty. Electronically signed by: Latrell Mcclellna M.D. 09/03/2017 11:49 AM Dictated Date/Time: 09/03/2017 11:48 AM
[2017-09-03] MEDS: SODIUM CHLORIDE 0.9% 1000ML 1,000 ML IV SCH ×2 (14:02→21:43)
[2017-09-03] MEDS: ACETAMINOPHEN 500 MG TAB PO SCH ×2 (14:04→21:17)
--- NOTE | 2017-09-03 14:17 | Anesthesiology Progress Note ---
Anesthesia Post Op Note Date & Time Sep 03, 2017 at 14:16 Vital Signs Pain Intensity: 0.0 Vital Signs Past 12 Hours Date Time Temp Pulse Resp B/P (MAP) Pulse Ox O2 Delivery O2 Flow Rate FiO2 09/03/17 13:29 36.7 67 18 153/76 (101) 95 Room Air 09/03/17 12:45 36.5 65 17 144/72 (96) 98 Nasal Cannula 2.0 09/03/17 12:30 Nasal Cannula 2.0 09/03/17 12:30 96 Nasal Cannula 2.0 09/03/17 12:30 36.6 67 16 136/63 (87) 96 Nasal Cannula 2.0 09/03/17 12:15 36.2 61 16 113/54 97 Nasal Cannula 2 09/03/17 12:05 36.2 60 16 129/58 97 Nasal Cannula 2 09/03/17 11:55 59 16 119/52 97 Nasal Cannula 2 09/03/17 11:45 65 18 119/54 97 Nasal Cannula 2 09/03/17 11:35 60 16 115/54 97 Nasal Cannula 2 09/03/17 11:25 63 16 116/55 100 Oxymask 10 09/03/17 11:15 37.1 64 16 107/46 100 Oxymask 10 09/03/17 07:25 36.9 65 18 176/90 95 Room Air Notes Mental Status: alert / awake / arousable, participated in evaluation Pt Amnestic to Procedure: Yes Nausea / Vomiting: adequately controlled Pain: adequately controlled Airway Patency, RR, SpO2: stable & adequate BP & HR: stable & adequate Hydration State: stable & adequate Neuraxial Anesthesia: was administered, sensory block is resolving Anesthetic Complications: no major complications apparent
--- NOTE | 2017-09-03 15:45 | PROGRESS NOTE ---
DATE: 09/03/2017 SUBJECTIVE: An 82-year-old female postop from a left knee replacement. She is doing well. Minimal pain. No chest pain or shortness of breath. Not feeling dizzy or lightheaded. OBJECTIVE: VITAL SIGNS: Temperature 36.8. Vital signs stable. GENERAL: Reveals a pleasant elderly female. She is sitting up in bed, looks pretty comfortable. LUNGS: Clear to auscultation. HEART: Regular rate and rhythm. ABDOMEN: Soft, nontender, nondistended. EXTREMITIES: Grossly neurovascularly intact except as follows: Examination of the left leg reveals the dressing to be clean, dry and intact. Leg is well aligned. She can dorsiflex and plantarflex her foot appropriately. She has got a good distal pulse. She is neurologically intact. X-RAYS: X-ray of the left knee from recovery room reviewed. It shows a left cemented posterior stabilized total knee arthroplasty. Components looked to be in good position. No signs of problems. ASSESSMENT: An 82-year-old female postop from a left knee replacement, doing well. Pain is controlled. She is neurologically intact. PLAN: 1. DVT prophylaxis including thigh-high TEDs, SCDs, and aspirin twice a day. 2. PT/OT. Weightbear as tolerated. Left total knee protocol. 3. Pain control. Doing well with current pain regimen. We will try and limit narcotics to avoid confusion and side effects. 4. IV antibiotics x24 hours. 5. Disposition: Plan to discharge to home with some home health once adequately recovered.
[2017-09-03] MEDS: CHECK SCOPOLAMINE PATCH PLACEMENT SCH ×2 (15:49→23:12)
[2017-09-03] MEDS: KETOROLAC TROMETHAMINE 15 MG/ML VIAL IV. SCH ×2 (15:50→21:43)
[2017-09-03] MEDS ORDERED: INSULIN HUMAN REGULAR SC SCH (16:00)
[2017-09-03] MEDS ORDERED: PHARMACY GLYCEMIC MGMT CONSULT PRN (16:15)
[2017-09-03] MEDS ORDERED: TRANEXAMIC ACID INJ 1,000 MG in SODIUM CHLORIDE 0.9% 100ML 100 ML IV SCH (17:00)
[2017-09-03] MEDS: CEFAZOLIN IV 2,000 MG in SYRINGE 0 ML IV SCH (17:54)
[2017-09-03] MEDS: FERROUS GLUCONATE 324 MG TAB PO SCH (17:54)
[2017-09-03] MEDS: INSULIN ASPART 100 UNITS/ML 3 ML PEN SC SCH ×3 (17:57→23:24)
--- NOTE | 2017-09-03 20:24 | Pharmacy Progress Note ---
Glycemic Control Intl Consult Date of Service Sep 03, 2017. Scope Glycemic Pharmacist consulted by Dr Aleman on 09/03/17 for glycemic control and to write orders per [facility] inpatient glycemic control protocol Objective Weight (Kilograms): 93.180 Accuchecks BSG (last 24hrs): Test 09/03/17 06:50 09/03/17 11:26 09/03/17 13:43 09/03/17 17:06 Bedside Glucose 167 mg/dl (70-90) 134 mg/dl (70-90) 161 mg/dl (70-90) 197 mg/dl (70-90) HbA1c 09/04 pending Recent Pertinent Medications Outpatient Anti-diabetic Regimen: * Levemir 50 units qpm * A1c = pending 09/04/17 The patient is currently receiving: * Basal insulin: none * Correctional Insulin: Regular Correction per scale ACHS Goal Range: Low 80 mg/dL - High 120 mg/dL Correction Factor: 40 mg/dL/unit * Prandial insulin: none * Oral Agents: none Risk Factors for Insulin Resistance: * Steroids: Dexamethasone 4 mg IV in OR today * Infection: no, on cefazolin perioperatively * IVF: NS @ 100 ml/hr * Recent Surgery: OR today, L total knee arthroplasty * Diet: npo, advancing to type 2 diabetic Assessment & Plan ASSESSMENT: * 82 yo type 2 diabetic with A1c pending to assess recent glycemic control. BSG' s rising due to stress of surgery and intraoperative steroid. Will restart home dose of Levemir, and fairly aggressive Novolog coverage. Will reassess in am. PLAN FOR INPATIENT GLYCEMIC CONTROL: * Basal insulin with Levemir 50 units SQ hs * Correctional Insulin with NOVOLOG per scale ACHS or Q6hrs while NPO, with additional checks overnight tonight * Goal Range: Low 110 mg/dL - High 150 mg/dL * Correction Factor: 15 mg/dL/unit * Nutritional / Prandial insulin per carb ratio of 1 unit per 6 grams CHO consumed * Please note that the plan above was derived based on current level of insulin resistance and hospital stress. These recommendations are appropriate for inpatient admission only. Plan of care upon discharge will need to be reassessed to avoid potential outpatient hypo/hyperglycemia. Thank you.
[2017-09-03] MEDS ORDERED: INSULIN DETEMIR FLEXPEN/FLEX TOUCH 100 UNITS/ML 3ML SC SCH (21:00)
[2017-09-03] MEDS: TRAZODONE HCL 100 MG TAB PO SCH (21:14)
[2017-09-03] MEDS: SIMVASTATIN 80 MG TAB PO SCH (21:14)
[2017-09-03] MEDS: ASPIRIN 325 MG ECTAB PO SCH (21:16)
[2017-09-03] MEDS: METOPROLOL TARTRATE 25 MG TAB PO SCH (21:16)
[2017-09-03] MEDS: CHOLECALCIFEROL 1000 INTER.UNIT TAB PO SCH (21:18)
[2017-09-03] MEDS: DOCUSATE SODIUM 100 MG CAP PO SCH (21:43)
[2017-09-03] MEDS: SENNA 8.6 MG TAB PO SCH (21:43)
--- NOTE | 2017-09-03 23:28 | OPERATIVE REPORT ---
DATE OF OPERATION: 09/03/2017 SURGEON: Domenico Aleman MD FIELD APPRAISER: RICO Song PREOPERATIVE DIAGNOSIS: Left knee degenerative joint disease. POSTOPERATIVE DIAGNOSIS: Same. PROCEDURE PERFORMED: Left cemented posterior stabilized total knee arthroplasty. COMPLICATIONS: None. ESTIMATED BLOOD LOSS: 50 mL. FLUID REPLACEMENT: 1500 mL crystalloid fluid replacement. TOURNIQUET TIME: 63 minutes at 300 mmHg. ANESTHESIA: Spinal with adductor canal block. DRAINS: None. SPECIMENS: Left knee; sent for pathology. OPERATIVE INDICATIONS: The patient is an 82-year-old female, who has had a long history of bilateral knee pain and discomfort. She failed conservative treatment. She underwent a right knee replacement about 6 months ago and has actually done well from this. She continued to be limited by her left knee pain and discomfort and elected to proceed with surgical treatment. OPERATIVE FINDINGS: Operative findings revealed advanced left knee DJD. She had grade 4 [id number] disease with eburnation of the medial femoral condyle and medial tibial plateau. She did have some grade 4 changes of the trochlea as well. The lateral compartment was pretty well-preserved. She had a moderate sized joint effusion. OPERATIVE IMPLANTS: Operative implants consisted of: 1. Biomet Vanguard size 65 left posterior stabilized femoral component. 2. Biomet size 67 tibial tray. 3. 10 mm posterior stabilized insert 4. A 28 x 8 all poly patella. OPERATIVE PROCEDURE: The patient was taken to the operating room, identified and placed on the operating table in supine position. All contact areas were appropriately padded. IV antibiotics were provided by the anesthesia team. A spinal anesthetic and adductor canal block had been provided in the holding area. A Walters catheter was placed in sterile fashion. A left thigh tourniquet was then placed and left lower extremity was then prepped and draped in the usual sterile fashion. The left leg was elevated and exsanguinated with Esmarch and tourniquet was placed at 300 mmHg. An anterior approach of the left knee was then performed through a longitudinal incision centered over the patella. A sharp dissection was carried out through the subcutaneous tissues down to the level of the extensor mechanism. A medial parapatellar arthrotomy incision was made. Some subperiosteal dissection was carried out medially. The fat pad was resected from beneath the patellar tendon. The lateral patellofemoral ligament was released. The patella was everted and the knee was flexed. The osteophytes were taken off the distal femur. The ACL and PCL were then released from the distal femur and the tibia subluxated anteriorly. The external tibial alignment jig was then placed in the anterior face of the tibia and adjusted 14 mm medially. A proximal tibial cut was made to remove about a millimeter or two of bone from the most deficient aspect of the medial tibial plateau. The tibia was then sized to a size 67. Attention was then drawn to the femur. The distal femur was entered with a sharp drill bit. The intramedullary canal was suctioned. A left 5 degree valgus cutting guide was placed. Distal femoral cutting block was pinned in place. Distal femoral cut was made to take an additional 3 mm of bone off the distal femur. The femur was then sized to a size 65. It was downsized just very slightly. The AP cutting block was pinned parallel to the epicondylar axis which was 4 degrees of external rotation. The anterior cut, anterior chamfer, posterior cut and posterior chamfer cuts were made. A box cutting guide was placed and adjusted slightly lateral and the box cut was made. The knee was flexed. The remnants of the medial and lateral menisci were excised. The osteophytes were taken off the posterior aspect of the femur. A trial femoral component was placed. The tibial tray was pinned in maximum external rotation and drill and stem punch were used to create defect in proximal tibia for the tibial tray. The knee was then trialed and a 10 mm insert fit most appropriately. Attention was then drawn to the patella. The patella was cleaned of all soft tissues. Patella thickness measured 22 mm in thickness and was cut down to 13. It was sized to a size 28 patella. Lug holes were dug for a 28 patella. The lateral osteophyte was removed. Patella button was placed. Knee was taken through range of motion and the patella tracked nicely with no thumbs test. Attention was then drawn toward placement of permanent components. All trial components were removed. A bone plug was placed in the distal femur to limit blood loss. A double batch of Palacos G cement was mixed. A left size 65 posterior bifemoral component, size 67 tibial tray, a 10 mm posterior stabilized polyethylene insert and a 28 x 8 all poly patella were then cemented in place. Knee was brought out into full extension until the cement hardened. A final cement check was then performed. The pericapsular tissues were injected with a total of 100 mL of a combination of 20 mL of Exparel, 30 mL of normal saline and 50 mL of 0.25% Marcaine with epinephrine. The patient did receive 1 gram of tranexamic acid. The tourniquet was then let down for final tourniquet time of 53 minutes. Hemostasis was assured using electrocautery. The extensor mechanism was then closed with a combination of #1 PDS suture and #1 Vicryl suture in a [id number] fashion. Extensor mechanism was checked and found to be intact. The subcutaneous tissues were then closed with 2-0 Dexon suture in a buried interrupted fashion. The skin was closed with skin henna. The leg was then cleaned and dried and a sterile dressing of Xeroform, 4 x 4, sterile cast padding and Sergei bandage were applied. The patient was then transferred to the recovery room in stable condition. The patient tolerated the procedure well with no complications. All needle and sponge counts were correct at the end of the operation. I attest to the content of the Intraoperative Record and any orders documented therein. Any exceptions are noted below. SHERIDAND
[2017-09-04] VITALS (8 sets, daily range): BP systolic 110–149; BP diastolic 53–72; PULSE 53–67; TEMP 36.6–36.8; O2SAT 92–97
[2017-09-04] MEDS: CEFAZOLIN IV 2,000 MG in SYRINGE 0 ML IV SCH (01:43)
[2017-09-04] MEDS: INSULIN ASPART 100 UNITS/ML 3 ML PEN SC SCH ×5 (03:44→21:09)
[2017-09-04] MEDS: KETOROLAC TROMETHAMINE 15 MG/ML VIAL IV. SCH (03:45)
[2017-09-04] MEDS: ACETAMINOPHEN 500 MG TAB PO SCH ×3 (06:05→21:36)
[2017-09-04 06:20] LABS: HEMATOCRIT 29.5 % (37-47); MEAN CELL VOLUME 94.9 fL (80-100); MEAN CORPUSCULAR HEMOGLOBIN 30.5 pg (25-34); MEAN CORPUSCULAR HGB CONC 32.2 g/dl (32-36); PLATELET COUNT 151 K/uL (130-400); RED BLOOD COUNT 3.11 M/uL (4.2-5.4); WHITE BLOOD COUNT 9.57 K/uL (4.8-10.8)
[2017-09-04 06:30] LABS: ESTIMATED AVERAGE GLUCOSE 169 mg/dl; HA1C FLAG Normal (Normal)
[2017-09-04 06:59] LABS: BLOOD UREA NITROGEN 26 mg/dl (7-18); CALCIUM 8.5 mg/dl (8.5-10.1); CARBON DIOXIDE 26 mmol/L (21-32); CHLORIDE 105 mmol/L (98-107); CREATININE 1.51 mg/dl (0.60-1.20); GLUCOSE 155 mg/dl (70-99); SODIUM 139 mmol/L (136-145)
[2017-09-04] MEDS: TRAMADOL HCL 50 MG TAB PO PRN ×3 (07:48→21:36)
[2017-09-04] MEDS: CHECK SCOPOLAMINE PATCH PLACEMENT SCH ×3 (07:48→23:52)
[2017-09-04] MEDS: DOCUSATE SODIUM 100 MG CAP PO SCH ×2 (08:46→21:04)
[2017-09-04] MEDS: SODIUM CHLORIDE 0.9% 1000ML 1,000 ML IV SCH (08:46)
[2017-09-04] MEDS: LISINOPRIL 40 MG TAB PO SCH (08:46)
[2017-09-04] MEDS: HYDROCHLOROTHIAZIDE 25 MG TAB PO SCH (08:47)
[2017-09-04] MEDS: PANTOprazole SOD 40 MG TAB PO SCH (08:47)
[2017-09-04] MEDS: FERROUS GLUCONATE 324 MG TAB PO SCH ×3 (08:47→18:01)
[2017-09-04] MEDS: ASPIRIN 325 MG ECTAB PO SCH ×2 (08:47→21:04)
[2017-09-04] MEDS: MULTIVITAMIN TAB PO SCH (08:47)
[2017-09-04] MEDS: METOPROLOL TARTRATE 25 MG TAB PO SCH ×2 (08:48→21:04)
[2017-09-04] MEDS ORDERED: INSULIN DETEMIR FLEXPEN/FLEX TOUCH 100 UNITS/ML 3ML SC ONE (09:30)
--- NOTE | 2017-09-04 09:31 | Pharmacy Progress Note ---
Glycemic Control Progress Note Date of Service Sep 04, 2017. Scope Glycemic Pharmacist consulted for glycemic control to write orders per [facility] inpatient glycemic control protocol. Objective Accuchecks BSG (last 24hrs): Test 09/03/17 11:26 09/03/17 13:43 09/03/17 17:06 09/03/17 20:44 Bedside Glucose 134 mg/dl (70-90) 161 mg/dl (70-90) 197 mg/dl (70-90) 236 mg/dl (70-90) Test 09/03/17 23:16 09/04/17 03:39 09/04/17 05:27 09/04/17 07:56 Bedside Glucose 178 mg/dl (70-90) 168 mg/dl (70-90) 190 mg/dl (70-90) Random Glucose 155 mg/dl (70-99) HbA1c: Test 09/04/17 05:27 Hemoglobin A1c 7.5 % (4.5-5.6) H Recent Pertinent Medications The patient is currently receiving: * Basal insulin: Levemir 50 units every 24 hours * Correctional Insulin: Novolog Correction per scale ACHS Goal Range: Low 110 mg/dL - High 150 mg/dL Correction Factor: 15 mg/dL/unit * Prandial insulin: Per carb ratio of 1 unit per 6 grams CHO consumed Outpatient Anti-Diabetic Meds Levemir 50 units qHS Assessment & Plan ASSESSMENT: * See progress note from 09/03 for more background info, in short: * Pt receiving SQ basal bolus insulin regimen for hyperglycemia secondary to baseline DM (outpatient regimen on hold), recent surgery, steroids (intraop Decadron 4 mg x 1) * Patient received 65 units of insulin yesterday with BSGs ranging from 155-236 mg/dL in the past 24 hours * Since all BSGs are above 150 at this point, will give an additional 0.2 unit/ kg dose of Levemir this AM. May still be seeing some effects of the Decadron from yesterday but she will not receive any further doses. * I had initially loosened the CF/CR this AM but after seeing the BSG up to 190 , will plan to tighten back to 15/6 for now (stress level of 3 w/ patient's weight) PLAN FOR INPATIENT GLYCEMIC CONTROL: * Additional dose of Levemir 16 units x 1 this AM * Continue Levemir 50 units qHS but give 40 units if BSG < 150 tonight * Keep CF/CR at 15/6 through today, until steroid effects have worn off RECOMMENDATIONS FOR DISCHARGE: * A1c indicates excellent outpatient control * Continue current regimen and f/u as an outpatient Thank you.
--- NOTE | 2017-09-04 10:15 | PROGRESS NOTE ---
DATE: 09/04/2017 SUBJECTIVE: An 82-year-old white female postop day 1 from left knee replacement. She is doing well. Pain is controlled. Therapy went pretty well this morning. Denies any chest pain or shortness of breath. Not feeling dizzy or lightheaded. OBJECTIVE: VITAL SIGNS: Temperature 36.7. Vital signs stable. GENERAL: Shows a pleasant elderly female. She is sitting up on her bedside chair, looks quite comfortable, watching TV. LUNGS: Clear to auscultation. HEART: Regular rate and rhythm. ABDOMEN: Soft, nontender, nondistended. EXTREMITIES: Grossly neurovascularly intact except as follows. Examination of the left knee and leg reveals the dressing to be clean, dry and intact. Just a hint of bloody drainage underneath. She can dorsiflex and plantarflex her foot appropriately. NEUROLOGIC: She is neurologically intact. LABORATORY DATA: Hemoglobin 9.5, hematocrit 29.5. Electrolytes are stable. Creatinine just slightly elevated at about 1.5. ASSESSMENT: An 82-year-old white female postop day 1 from left knee replacement, doing pretty well. Pain is controlled. She is neurologically intact. Creatinine is just slightly elevated. PLAN: 1. DVT prophylaxis including thigh-high TEDs, SCDs, and aspirin twice a day. 2. PT/OT. Weight bear as tolerated. Left total knee protocol, pain control, doing pretty well with current pain regimen. We are going to have to stop her Toradol due to renal function and we will follow that. 3. Anemia. Currently asymptomatic. Continue iron supplementation. 4. Disposition: She is planning to be discharged to home with some home health once adequately recovered.
[2017-09-04] MEDS ORDERED: FRRG PO (10:20)
[2017-09-04] MEDS ORDERED: ASPEC325 PO (10:20)
[2017-09-04] MEDS ORDERED: ULT50X PO (10:20)
[2017-09-04] MEDS ORDERED: ACET-24 PO (10:20)
--- NOTE | 2017-09-04 10:22 | Discharge Instructions ---
Discharge Instructions Date of Service Sep 04, 2017. Admission Reason for Admission: Left Knee Degenerative Joint Disease Discharge Discharge Diagnosis / Problem: Left Knee Replacement Discharge Goals Goal(s): Decrease discomfort, Improve function, Increase independence, Improve disease control, Therapeutic intervention Activity Recommendations Activity Limitations: per Instructions/Follow-up section Weightbearing Status: Left weightbearing . Instructions / Follow-Up Instructions / Follow-Up ACTIVITY RECOMMENDATIONS: Physical Therapy: * You will go to physical therapy three times each week for four to six weeks after your surgery in order to regain your knee range of motion and to retrain your knee to work properly. * It is just as important to make sure you are getting your knee perfectly straight as it is to regain your knee bend. * Taking a pain pill an hour before therapy can help you have a more productive and comfortable therapy session. Home Exercise: * You were shown a series of exercises (heel props, heel slides, etc.) in the hospital. Do these exercises three to four times each day including the exercises you were shown in physical therapy. Walking: * Get up and walk several times each day. For the first four weeks, try not to stand or walk for more than one hour at a time. If you do stand or walk for more than one hour, you will not hurt anything, but your knee and leg will likely swell. * As you feel comfortable, you may change from the walker or crutches to a cane and then to independent walking. MEDICATIONS: New Medicine: * You will likely be taking one or more of these medications: 1. Tramadol - A quick and shorter-acting pain medication. Take one to two tablets every four to six hours to lessen your pain. 2. Iron Sulfate - Take three times each day for the month after surgery to help you replace the blood lost during surgery. 3. Aspirin - Thins your blood to lessen the chance of forming a blood clot. * The most common side effects of pain medicine and iron are nausea and constipation. If nausea or constipation is too much of a problem or if you have any questions about your new medicines or doses, call [facility] at [phone]. We will try to help you manage these issues. VERY IMPORTANT TO READ AND REVIEW" Pain: * The immediate post-operative period after knee replacement surgery is often quite painful. * You are given a prescription for pain medicine. You should take it, as directed, when you need it, especially before physical therapy and before going to bed. Pain that interferes with sleep is very common and can last several months. * You will likely need pain medicine for the first four to six weeks. It will not stop all of the pain. The pain will lessen and as you feel better, you may change to milder pain medicine such as Tylenol. * The most common side effects of pain medicine are nausea and constipation, so don't take more than you need. SPECIAL CARE INSTRUCTIONS: TEDs/Elastic Stockings: * The white elastic stockings help limit swelling and prevent blood clots from forming in your legs. The more you wear them, the more they work. * Wear them for six weeks after knee replacement surgery and four weeks after partial knee replacement. Prevention of Infection: * Take antibiotics one hour before any dental cleaning, dental work, urological procedure, gastrointestinal procedure or any invasive surgery in order to prevent your new joint from getting infected. * You may get the antibiotics from the doctor performing the procedure or you may call our office at before and we will call in a prescription to the pharmacy of your choice. Things to Watch For: * Drainage from the incision site that occurs more than one week after your surgery. * Severely increased knee/leg pain or swelling. * Increased redness at the incision site. * Fever above 102 degrees Fahrenheit. * Unusual chest pain or shortness of breath. * Unusual pain or burning with urination. Call [facility] at with any of the above problems or if you have any questions about your medicines or recovery. FOLLOW UP VISIT: Make an appointment to see your doctor for approximately two weeks after surgery for a progress check and staple removal by calling the office at . Current Hospital Diet Patient's current hospital diet: Diabetes Type 2 Diet Discharge Diet Recommended Diet: Diabetes Type 2 Diet Procedures Procedures Performed: Left total knee arthroplasty Pending Studies Studies pending at discharge: no Laboratory Results Hemoglobin A1c Test 09/04/17 05:27 Range/Units Estimated Average Glucose 169 mg/dl Hemoglobin A1c 7.5 H 4.5-5.6 % Medical Emergencies . Who to Call and When: Medical Emergencies: If at any time you feel your situation is an emergency, please call 911 immediately. . Non-Emergent Contact Non-Emergency issues call your: Surgeon . "Provider Documentation" section prepared by Domenico Aleman. . VTE Core Measure Inpt VTE Proph given/why not?: Other Anticoagulation, T.E.D. Saadia, SCD's
[2017-09-04] MEDS ORDERED: INSULIN DETEMIR FLEXPEN/FLEX TOUCH 100 UNITS/ML 3ML SC SCH (21:00)
[2017-09-04] MEDS: CHOLECALCIFEROL 1000 INTER.UNIT TAB PO SCH (21:04)
[2017-09-04] MEDS: SENNA 8.6 MG TAB PO SCH (21:04)
[2017-09-04] MEDS: TRAZODONE HCL 100 MG TAB PO SCH (21:04)
[2017-09-04] MEDS: SIMVASTATIN 80 MG TAB PO SCH (21:04)
[2017-09-05 05:54] LABS: HEMATOCRIT 28.7 % (37-47)
[2017-09-05] MEDS: ACETAMINOPHEN 500 MG TAB PO SCH (06:05)
[2017-09-05] MEDS: TRAMADOL HCL 50 MG TAB PO PRN (06:06)
[2017-09-05 06:36] LABS: BUN/CREATININE RATIO 19.2 (10-20); CALCIUM 8.5 mg/dl (8.5-10.1); CREATININE 1.25 mg/dl (0.60-1.20); POTASSIUM 4.4 mmol/L (3.5-5.1)
[2017-09-05 06:42] VITALS: BP 156/71; PULSE 75; TEMP 36.8; O2SAT 91
--- NOTE | 2017-09-05 07:21 | PROGRESS NOTE ---
DATE: 09/05/2017 SUBJECTIVE: An 82-year-old female postop day 2 from a left knee replacement. She is doing pretty well. Pain is reasonably well controlled. No chest pain or shortness of breath. Not feeling dizzy or lightheaded. OBJECTIVE: VITAL SIGNS: Temperature 36.8. Vital signs stable. GENERAL: A pleasant elderly female. She is lying in bed, looks pretty comfortable. EXTREMITIES: Examination of the left leg reveals the incision and the dressing to be clean, dry and intact. Her calf is soft and supple. She can dorsiflex and plantarflex her foot appropriately. She is neurologically intact. LABORATORY DATA: Hemoglobin 9.2. Hematocrit 28.7. Renal function is back to baseline with a creatinine 1.25. ASSESSMENT: An 82-year-old white female postop day 2 from a left knee replacement, doing well. Pain is reasonably well controlled. She is anemic, but without symptoms. Her renal function is back to her baseline. PLAN: 1. DVT prophylaxis including thigh-high TEDs, SCDs, and aspirin twice a day. 2. PT/OT. Weight bear as tolerated. Left total knee protocol. 3. Pain control, doing well with current pain regimen. 4. Disposition: Plan to discharge to home with some home health later today.
[2017-09-05] MEDS: CHECK SCOPOLAMINE PATCH PLACEMENT SCH (07:25)
[2017-09-05] MEDS: DOCUSATE SODIUM 100 MG CAP PO SCH (07:26)
[2017-09-05] MEDS: ASPIRIN 325 MG ECTAB PO SCH (07:26)
[2017-09-05] MEDS: MULTIVITAMIN TAB PO SCH (07:27)
[2017-09-05] MEDS: FERROUS GLUCONATE 324 MG TAB PO SCH (07:27)
[2017-09-05] MEDS: METOPROLOL TARTRATE 25 MG TAB PO SCH (07:27)
[2017-09-05] MEDS: LISINOPRIL 40 MG TAB PO SCH (07:27)
[2017-09-05] MEDS: PANTOprazole SOD 40 MG TAB PO SCH (07:27)
[2017-09-05] MEDS: HYDROCHLOROTHIAZIDE 25 MG TAB PO SCH (07:28)
[2017-09-05] MEDS: INSULIN ASPART 100 UNITS/ML 3 ML PEN SC SCH (07:35)
[2017-09-05 07:51] VITALS: BP 156/71; PULSE 75; TEMP 36.8; O2SAT 91
== END 2017-09-05 11:20 | disposition home health service (06) | DRG 470 ==
LOC: C.ACU 06:20 → C.3E 06:50 → ENRESERV 11:54
PROVIDERS: ADMIT Orthopaedic Surgery Sports Medicine; ATTEND Orthopaedic Surgery Sports Medicine
PROC: 0SRD0J9 Replacement of Left Knee Joint with Synthetic Substitute, Cemented, Open Approach (ICD-10-PCS; principal; 2017-09-03 09:00)
DX: M17.12 Unilateral primary osteoarthritis, left knee (principal); E11.9 Type 2 diabetes mellitus without complications; I10 Essential (primary) hypertension; E78.00 Pure hypercholesterolemia, unspecified; E66.9 Obesity, unspecified; Z68.33 Body mass index [BMI] 33.0-33.9, adult; Z96.651 Presence of right artificial knee joint; Z79.4 Long term (current) use of insulin; Z79.82 Long term (current) use of aspirin; Z79.899 Other long term (current) drug therapy; Z88.2 Allergy status to sulfonamides

== ENCOUNTER → 2017-11-04 | Outpatient (CLI) | payer OTHER ==
[~2017-11-04] MED LIST changes: +ACET-24 PO; -ACETAMINOPHEN 500 MG TAB PO SCH; +ASPEC325 PO; -ASPI81TA28 PO; -BUPIVACAINE LIPOSOME 266 MG, BUPIVACAINE/EPINEPHRINE INJ 50 ML, SODIUM CHLORIDE 0.9% PF... INFIL SCH; -CEFAZOLIN 2000MG IV PUSH 10 ML IV SCH; -FAMOTIDINE 20 MG TAB PO SCH; +FRRG PO; -GABAPENTIN 300 MG CAP PO SCH; -LACTATED RINGER'S 1000ML 500 ML IV ONE; -LACTATED RINGER'S 1000ML IV SCH; -METOCLOPRAMIDE HCL 10 MG TAB PO SCH; -SCOPOLAMINE 1.5 MG TDSY TD SCH; -TRANEXAMIC ACID INJ 1,000 MG in SYRINGE 0 ML IV SCH; +ULT50X PO
[2017-11-04 17:29] LABS: BASO % 0.4 %; BASO ABS # 0.03 K/uL (0-0.2); EOS % 1.7 %; EOS ABS # 0.13 K/uL (0-0.5); HEMATOCRIT 39.7 % (37-47); HEMOGLOBIN 12.4 g/dL (12.0-16.0); IG# 0.03 K/uL (0.00-0.02); LYMPH % 24.9 %; LYMPH ABS # 1.91 K/uL (1.2-3.4); MEAN CELL VOLUME 97.3 fL (80-100); MEAN CORPUSCULAR HEMOGLOBIN 30.4 pg (25-34); MEAN CORPUSCULAR HGB CONC 31.2 g/dl (32-36); MEAN PLATELET VOLUME 10.5 fL (7.4-10.4); MONO % 6.5 %; NEUT % 66.1 %; NEUT ABS # 5.08 K/uL (1.4-6.5); PLATELET COUNT 213 K/uL (130-400); RED CELL DISTRIBUTION WIDTH CV 14.3 % (11.5-14.5); RED CELL DISTRIBUTION WIDTH SD 50.8 fL (36.4-46.3); WHITE BLOOD COUNT 7.68 K/uL (4.8-10.8)
[2017-11-04 18:26] LABS: BLOOD UREA NITROGEN 21 mg/dl (7-18); CREATININE 1.19 mg/dl (0.60-1.20); GLUCOSE 131 mg/dl (70-99)
[2017-11-04 18:27] LABS: CALCIUM 9.8 mg/dl (8.5-10.1); CARBON DIOXIDE 28 mmol/L (21-32); PHOSPHORUS 3.4 mg/dl (2.5-4.9); POTASSIUM 4.3 mmol/L (3.5-5.1); SODIUM 138 mmol/L (136-145)
== END | disposition home or self-care (01) ==
LOC: C.LABPVFM 12:13
PROVIDERS: ATTEND Internal Medicine Nephrology
DX: N18.3 Chronic kidney disease, stage 3 (moderate) (principal)

== ENCOUNTER → 2017-11-19 | Outpatient (CLI) | payer OTHER ==
[2017-11-19 13:08] LABS: HEMOGLOBIN A1C 6.4 % (4.5-5.6)
[2017-11-19 13:25] LABS: ALBUMIN 3.9 gm/dl (3.4-5.0); ALT/SGPT 16 U/L (12-78); AST/SGOT 12 U/L (15-37); BLOOD UREA NITROGEN 17 mg/dl (7-18); CALCIUM 9.4 mg/dl (8.5-10.1); CARBON DIOXIDE 30 mmol/L (21-32); CHOLESTEROL 151 mg/dl (0-200); CREATININE 1.09 mg/dl (0.60-1.20); GLUCOSE 125 mg/dl (70-99); SODIUM 139 mmol/L (136-145)
[2017-11-19 13:27] LABS: ALKALINE PHOSPHATASE 69 U/L (45-117); LDL CHOLESTEROL CALCULATED 37 mg/dl; TOTAL PROTEIN 7.1 gm/dl (6.4-8.2)
== END | disposition home or self-care (01) ==
LOC: C.LABPVFM 09:35
PROVIDERS: ATTEND Family Medicine
DX: I10 Essential (primary) hypertension (principal); E78.5 Hyperlipidemia, unspecified; R42 Dizziness and giddiness; E11.29 Type 2 diabetes mellitus with other diabetic kidney complication; G47.00 Insomnia, unspecified

== ENCOUNTER → 2018-05-23 | Outpatient (CLI) | payer OTHER ==
[2018-05-23 13:00] LABS: HEMOGLOBIN A1C 7.3 % (4.5-5.6)
[2018-05-23 13:32] LABS: ALKALINE PHOSPHATASE 81 U/L (45-117); ALT/SGPT 17 U/L (12-78); AST/SGOT 16 U/L (15-37); BLOOD UREA NITROGEN 21 mg/dl (7-18); CARBON DIOXIDE 26 mmol/L (21-32); CHOLESTEROL 146 mg/dl (0-200); GLUCOSE 107 mg/dl (70-99); LDL CHOLESTEROL CALCULATED 56 mg/dl; POTASSIUM 3.9 mmol/L (3.5-5.1); SODIUM 137 mmol/L (136-145); TOTAL PROTEIN 7.5 gm/dl (6.4-8.2)
== END | disposition home or self-care (01) ==
LOC: C.LABPVFM 08:23
PROVIDERS: ATTEND Family Medicine
DX: I10 Essential (primary) hypertension (principal); E78.5 Hyperlipidemia, unspecified; E11.29 Type 2 diabetes mellitus with other diabetic kidney complication; R91.1 Solitary pulmonary nodule; G47.00 Insomnia, unspecified; R25.2 Cramp and spasm